=== PATIENT | male | born 1950 | race Caucasian/White ===

== ENCOUNTER → 2016-05-02 | Outpatient (CLI) | payer MEDICARE ==
[~2016-05-02] MED LIST: /MOXI40TA PO; AMLO10TA2 PO; AMPHETAMINE SALTS PO; ASPI81TA PO; CITA40TA PO; CLON0.2T PO; COUM7.5T PO; GLIM1TAB PO; HYDR100T13 PO; KLOR20TA PO; LASI40TA PO; LOSA100T36 PO; METO100T3 PO; SPIR25TA2 PO; TYLE325T5 PO; ZOCO80TA PO
[2016-05-02 14:35] LABS: ANION GAP 8 MEQ/L (8-16); BLOOD UREA NITROGEN 22 MG/DL (7-18); CALCIUM LEVEL 9.1 MG/DL (8.8-10.2); CARBON DIOXIDE LEVEL 29 MEQ/L (21-32); CHLORIDE LEVEL 106 MEQ/L (98-107); CREATININE FOR GFR 1.05 MG/DL (0.70-1.30); GLOMERULAR FILTRATION RATE > 60.0 (>49); GLUCOSE, FASTING 237 MG/DL (80-110); POTASSIUM SERUM 4.4 MEQ/L (3.5-5.1); SODIUM LEVEL 143 MEQ/L (136-145)
== END ==
LOC: M SMT 11:28
PROVIDERS: ATTEND Physician Assistant Medical
DX: E11.9 Type 2 diabetes mellitus without complications (principal)

== ENCOUNTER → 2016-05-18 | Day surgery (SDC) | payer MEDICARE ==
[~2016-05-18] VITALS: Ht 172.7 cm; Wt 108.9 kg
[~2016-05-18] MED LIST changes: +ACETAMINOPHEN 325 MG TAB PO PRN; +AMIO20TA PO; +ASPI81TA85 PO; +AcetaZOLAMIDE 500 MG ER CAP PO ONE; +BSS with VANC/TOB/EPI for EYE CASES IR ONE; +CYCLOPENTOLATE 2% OPHTH SOLN OD ONE; +FISH1000 PO; +FLUO40CA PO; +FURO40TA2 PO; +GLYB25TA PO; +HEALON DUET (HEALON 10MG/ML 0.55ML & HEALON ENDOCOAT 30MG/ML 0.85ML) As Ordered ONE; +HEALON DUET (HEALON 10MG/ML 0.55ML & HEALON ENDOCOAT 30MG/ML 0.85ML) XX ONE; +KETOROLAC 0.5% OPHTH SOLN XX ONE; +LIDOCAINE 1% SDV 5 ML VIAL As Ordered ONE; +LIDOCAINE 1% SDV 5 ML VIAL XX ONE; +LIDOCAINE 4% INJ 5 ML AMP OU ONE; +METF1000 PO; +METO-209 PO; +MIDAZOLAM INJ 2 MG/2 ML VIAL (J2250) As Ordered ONE; +MOXIFLOXACIN IN BSS 0.25MG/0.25ML INTRACAMERAL INJ (OR EYE ONLY)(J2280) As Ordered ONE; +MOXIFLOXACIN IN BSS 0.25MG/0.25ML INTRACAMERAL INJ (OR EYE ONLY)(J2280) ICAM ONE; +OFLOXACIN 0.3 % (OCUFLOX) OPTH SOL 5ML OD ONE; +PHENYLEPHRINE 2.5% OPHTH SOL 2ML OD ONE; +POTA20PW PO; +POTA20TA FT; +POVIDONE-IODINE 5% OPHTH PREP SOL 30ML As Ordered ONE; +PRAD150C PO; +PRAV80TA2 PO; +PROPARACAINE 0.5% OPHTH SOL 15ML XX PRN; +STRETAB4 PO; +TRIAMCINOLONE PRES FR 40 MG/ML 1ML(TRIESENCE)(OR EYE ONLY)(J3300 PER 1MG) As Ordered ONE; +TRIAMCINOLONE PRES FR 40 MG/ML 1ML(TRIESENCE)(OR EYE ONLY)(J3300 PER 1MG) IO ONE; +TRIMETHOBENZAMIDE 300 MG CAP PO PRN; +TROPICAMIDE 1% OPHTH SOLN 2 ML OD ONE; +VITA100041 PO; +fentaNYL 100 MCG/2 ML INJECTION (J3010) As Ordered ONE; +hydrALAZINE INJ 20 MG/ML VIAL As Ordered ONE
[2016-05-18 10:05] VITALS: BP 165/79
== END | disposition home or self-care (01) ==
LOC: M SDC 07:28
PROVIDERS: ATTEND Ophthalmology
DX: H26.9 Unspecified cataract (principal); I25.810 Atherosclerosis of coronary artery bypass graft(s) without angina pectoris; I48.0 Paroxysmal atrial fibrillation; E11.9 Type 2 diabetes mellitus without complications; I10 Essential (primary) hypertension; E78.5 Hyperlipidemia, unspecified; R41.840 Attention and concentration deficit; G47.33 Obstructive sleep apnea (adult) (pediatric); I71.4 Abdominal aortic aneurysm, without rupture; R06.9 Unspecified abnormalities of breathing; I50.9 Heart failure, unspecified; E78.00 Pure hypercholesterolemia, unspecified; M12.9 Arthropathy, unspecified; R06.02 Shortness of breath; F41.9 Anxiety disorder, unspecified; F32.9 Major depressive disorder, single episode, unspecified; Z95.5 Presence of coronary angioplasty implant and graft; Z87.891 Personal history of nicotine dependence; Z79.899 Other long term (current) drug therapy
CPT/HCPCS: 66984; J2250; J2280; J3010; J3300; V2632

== ENCOUNTER → 2016-06-06 | Day surgery (SDC) | payer MEDICARE ==
[~2016-06-06] VITALS: Ht 172.7 cm; Wt 109.0 kg
[~2016-06-06] MED LIST changes: -CYCLOPENTOLATE 2% OPHTH SOLN OD ONE; +CYCLOPENTOLATE 2% OPHTH SOLN XX ONE; +D5W/0.2% SODIUM CHLORIDE 250 ML IV SCH; +KETOROLAC 0.5% OPHTH SOLN OS ONE; -KETOROLAC 0.5% OPHTH SOLN XX ONE; +LIDOCAINE 0.75%/EPINEPHRINE 0.025% IN BSS 1ML SYR INTRACAMERAL (OR ONLY) ICAM ONE; -OFLOXACIN 0.3 % (OCUFLOX) OPTH SOL 5ML OD ONE; +OFLOXACIN 0.3 % (OCUFLOX) OPTH SOL 5ML XX ONE; -PHENYLEPHRINE 2.5% OPHTH SOL 2ML OD ONE; +PHENYLEPHRINE 2.5% OPHTH SOL 2ML XX ONE; +PROPARACAINE 0.5% OPHTH SOL 15ML OS PRN; -PROPARACAINE 0.5% OPHTH SOL 15ML XX PRN; -TROPICAMIDE 1% OPHTH SOLN 2 ML OD ONE; +TROPICAMIDE 1% OPHTH SOLN 2 ML XX ONE; -hydrALAZINE INJ 20 MG/ML VIAL As Ordered ONE
[2016-06-06 10:30] VITALS: BP 158/84
== END | disposition home or self-care (01) ==
LOC: M SDC 08:00
PROVIDERS: ATTEND Ophthalmology
DX: H26.9 Unspecified cataract (principal); I48.0 Paroxysmal atrial fibrillation; I25.810 Atherosclerosis of coronary artery bypass graft(s) without angina pectoris; I50.9 Heart failure, unspecified; E11.8 Type 2 diabetes mellitus with unspecified complications; E78.5 Hyperlipidemia, unspecified; I10 Essential (primary) hypertension; I71.4 Abdominal aortic aneurysm, without rupture; R07.9 Chest pain, unspecified; R06.83 Snoring; R06.02 Shortness of breath; F32.9 Major depressive disorder, single episode, unspecified; G47.33 Obstructive sleep apnea (adult) (pediatric); R41.840 Attention and concentration deficit; Z79.899 Other long term (current) drug therapy; Z79.82 Long term (current) use of aspirin; Z87.891 Personal history of nicotine dependence; Z95.5 Presence of coronary angioplasty implant and graft
CPT/HCPCS: 66984; J2250; J2280; J3010; J3300; V2632

== ENCOUNTER → 2016-08-15 | Outpatient (CLI) | payer MEDICARE ==
[~2016-08-15] MED LIST changes: -ACETAMINOPHEN 325 MG TAB PO PRN; -AcetaZOLAMIDE 500 MG ER CAP PO ONE; -BSS with VANC/TOB/EPI for EYE CASES IR ONE; -CYCLOPENTOLATE 2% OPHTH SOLN XX ONE; -D5W/0.2% SODIUM CHLORIDE 250 ML IV SCH; -HEALON DUET (HEALON 10MG/ML 0.55ML & HEALON ENDOCOAT 30MG/ML 0.85ML) As Ordered ONE; -HEALON DUET (HEALON 10MG/ML 0.55ML & HEALON ENDOCOAT 30MG/ML 0.85ML) XX ONE; -KETOROLAC 0.5% OPHTH SOLN OS ONE; +KLOR20PO12 PO; -LIDOCAINE 0.75%/EPINEPHRINE 0.025% IN BSS 1ML SYR INTRACAMERAL (OR ONLY) ICAM ONE; -LIDOCAINE 1% SDV 5 ML VIAL As Ordered ONE; -LIDOCAINE 1% SDV 5 ML VIAL XX ONE; -LIDOCAINE 4% INJ 5 ML AMP OU ONE; -MIDAZOLAM INJ 2 MG/2 ML VIAL (J2250) As Ordered ONE; -MOXIFLOXACIN IN BSS 0.25MG/0.25ML INTRACAMERAL INJ (OR EYE ONLY)(J2280) As Ordered ONE; -MOXIFLOXACIN IN BSS 0.25MG/0.25ML INTRACAMERAL INJ (OR EYE ONLY)(J2280) ICAM ONE; -OFLOXACIN 0.3 % (OCUFLOX) OPTH SOL 5ML XX ONE; -PHENYLEPHRINE 2.5% OPHTH SOL 2ML XX ONE; -POTA20PW PO; -POVIDONE-IODINE 5% OPHTH PREP SOL 30ML As Ordered ONE; -PROPARACAINE 0.5% OPHTH SOL 15ML OS PRN; -TRIAMCINOLONE PRES FR 40 MG/ML 1ML(TRIESENCE)(OR EYE ONLY)(J3300 PER 1MG) As Ordered ONE; -TRIAMCINOLONE PRES FR 40 MG/ML 1ML(TRIESENCE)(OR EYE ONLY)(J3300 PER 1MG) IO ONE; -TRIMETHOBENZAMIDE 300 MG CAP PO PRN; -TROPICAMIDE 1% OPHTH SOLN 2 ML XX ONE; -fentaNYL 100 MCG/2 ML INJECTION (J3010) As Ordered ONE
[2016-08-15 13:44] LABS: BASO % 0.6 % (0.0-1.0); EOS # 0.7 K/mm3 (0.0-0.50); EOS % 7.7 % (0.0-3.0); LARGE UNSTAINED CELL # 0.2 K/mm3 (0.0-0.4); LARGE UNSTAINED CELL % 2.6 % (0.0-4.0); LYMPH % 20.7 % (24.0-44.0); MEAN CORPUSCULAR HGB CONC 33.7 g/dl (32.0-36.5); MEAN CORPUSCULAR VOLUME 92.1 fl (80.0-96.0); MONO # 0.6 K/mm3 (0.0-0.8); MONO % 6.3 % (0.0-5.0); NEUTROPHILS # 5.4 K/mm3 (1.8-7.7); PLATELET COUNT, AUTOMATED 201 k/mm3 (150-450); RED CELL DISTRIBUTION WIDTH 13.1 % (11.5-14.5); WHITE BLOOD COUNT 8.6 K/mm3 (4.0-10.0)
[2016-08-15 13:47] LABS: ALBUMIN 3.7 GM/DL (3.2-5.2); ALBUMIN/GLOBULIN RATIO 1.12 (1.00-1.93); ALKALINE PHOSPHATASE 102 U/L (45-117); ALT/SGPT 73 U/L (12-78); ANION GAP 5 MEQ/L (8-16); AST/SGOT 48 U/L (15-37); BILIRUBIN,TOTAL 0.5 MG/DL (0.2-1.0); BLOOD UREA NITROGEN 21 MG/DL (7-18); CALCIUM LEVEL 8.7 MG/DL (8.8-10.2); CARBON DIOXIDE LEVEL 29 MEQ/L (21-32); CHLORIDE LEVEL 107 MEQ/L (98-107); CHOLESTEROL LEVEL 161 MG/DL (<200); CREATININE FOR GFR 1.02 MG/DL (0.70-1.30); GLOMERULAR FILTRATION RATE > 60.0 (>49); GLUCOSE, FASTING 219 MG/DL (80-110); POTASSIUM SERUM 4.3 MEQ/L (3.5-5.1); SODIUM LEVEL 141 MEQ/L (136-145); TRIGLYCERIDES LEVEL 134 MG/DL (<150)
== END ==
LOC: M SMT 09:41
PROVIDERS: ATTEND Physician Assistant Medical
DX: E11.9 Type 2 diabetes mellitus without complications (principal); Z79.01 Long term (current) use of anticoagulants; I48.0 Paroxysmal atrial fibrillation; E78.5 Hyperlipidemia, unspecified; I10 Essential (primary) hypertension; I25.810 Atherosclerosis of coronary artery bypass graft(s) without angina pectoris

== ENCOUNTER → 2017-04-13 | Outpatient (CLI) | payer MEDICARE | LOC: M SMT 13:32 | DX: M26.601 Right temporomandibular joint disorder, unspecified (principal); R51 Headache | CPT/HCPCS: 70150 ==

== ENCOUNTER → 2017-11-21 | Outpatient (CLI) | payer MEDICARE ==
[2017-11-21 17:26] LABS: HEMATOCRIT 44.9 % (42.0-52.0); HEMOGLOBIN 15.5 g/dl (13.5-17.5); MEAN CORPUSCULAR HEMOGLOBIN 30.7 pg (27.0-33.0); MEAN CORPUSCULAR HGB CONC 34.5 g/dl (32.0-36.5); MEAN CORPUSCULAR VOLUME 88.9 fl (80.0-96.0); PLATELET COUNT, AUTOMATED 202 10^3/uL (150-450); RED BLOOD COUNT 5.05 10^6/uL (4.30-6.10); RED CELL DISTRIBUTION WIDTH 12.4 % (11.5-14.5); WHITE BLOOD COUNT 8.3 10^3/uL (4.0-10.0)
[2017-11-21 17:51] LABS: ESTIMATED AVERAGE GLUCOSE 214 MG/DL (60-110); HEMOGLOBIN A1c 9.1 %
[2017-11-21 18:08] LABS: ALBUMIN 3.7 GM/DL (3.2-5.2); ALBUMIN/GLOBULIN RATIO 0.97 (1.00-1.93); ALKALINE PHOSPHATASE 142 U/L (45-117); ALT/SGPT 43 U/L (12-78); ANION GAP 11 MEQ/L (8-16); AST/SGOT 23 U/L (7-37); BILIRUBIN,TOTAL 0.7 MG/DL (0.2-1.0); BLOOD UREA NITROGEN 12 MG/DL (7-18); CALCIUM LEVEL 9.2 MG/DL (8.8-10.2); CARBON DIOXIDE LEVEL 28 MEQ/L (21-32); CHLORIDE LEVEL 103 MEQ/L (98-107); CREATININE FOR GFR 1.15 MG/DL (0.70-1.30); GLOMERULAR FILTRATION RATE > 60.0 (>49); GLUCOSE, FASTING 351 MG/DL (70-100); POTASSIUM SERUM 3.5 MEQ/L (3.5-5.1); SODIUM LEVEL 142 MEQ/L (136-145); TOTAL PROTEIN 7.5 GM/DL (6.4-8.2); TROPONIN I < 0.02 NG/ML (< 0.10)
== END ==
LOC: M SMT 13:59
DX: I25.10 Atherosclerotic heart disease of native coronary artery without angina pectoris (principal); E11.9 Type 2 diabetes mellitus without complications; I10 Essential (primary) hypertension; I48.91 Unspecified atrial fibrillation
CPT/HCPCS: 84443

== ENCOUNTER → 2017-11-21 | Outpatient (CLI) | payer MEDICARE | LOC: M SMT 13:57 | DX: E78.5 Hyperlipidemia, unspecified (principal); E11.65 Type 2 diabetes mellitus with hyperglycemia | CPT/HCPCS: 36415 ==

== ENCOUNTER 2018-06-21 10:21 | Inpatient (IN) | payer MEDICARE ==
[~2018-06-21] VITALS: Ht 170.2 cm; Wt 85.3 kg
[~2018-06-21 10:21] MED LIST changes: +AMIO200T PO; -AMIO20TA PO; +AMLO10TA5 PO; +KLOR20TA42 FT; +LOSA100T50 PO; -METF1000 PO; +METF10004 PO; -METO-209 PO; +METO1TAB33 PO; -POTA20TA FT; +VITA-182 PO; -VITA100041 PO
[2018-06-21 11:01] LABS: BASO % 0.4 % (0.0-1.0); EOS # 0.1 10^3/uL (0.0-0.50); EOS % 1.9 % (0.0-3.0); HEMATOCRIT 43.8 % (42.0-52.0); HEMOGLOBIN 14.7 g/dl (13.5-17.5); LYMPH % 14.1 % (24.0-44.0); MEAN CORPUSCULAR HEMOGLOBIN 29.7 pg (27.0-33.0); MEAN CORPUSCULAR HGB CONC 33.6 g/dl (32.0-36.5); MEAN CORPUSCULAR VOLUME 88.5 fl (80.0-96.0); MONO # 0.8 10^3/uL (0.0-0.8); MONO % 10.6 % (0.0-5.0); NEUTROPHILS # 5.3 10^3/uL (1.8-7.7); NEUTROPHILS % 72.7 % (36.0-66.0); PLATELET COUNT, AUTOMATED 173 10^3/uL (150-450); RED BLOOD COUNT 4.95 10^6/uL (4.30-6.10); WHITE BLOOD COUNT 7.3 10^3/uL (4.0-10.0)
[2018-06-21 11:02] LABS: VENOUS BASE EXCESS -1.2 (-2.0-2.0); VENOUS O2 SATURATION 91.1 % (60.0-80.0); VENOUS PARTIAL PRESSURE O2 57.4 mmHg (30.0-50.0); VENOUS PH 7.442 UNITS (7.330-7.430); VENOUS STANDARD HCO3 23.3 MEQ/L
--- NOTE | 2018-06-21 11:02 | REP ---
Chest one-view HISTORY: Cough Comparison: 01/18/2013 Parenchymal densities are present in the lower lobes consistent with bibasilar atelectasis or infiltrates . The cardiac silhouette is enlarged. The pulmonary vasculature is normal in appearance. Impression: 1. Bibasilar atelectasis or infiltrates. 2. Cardiomegaly. Electronically Signed by Alex Peña MD 06/21/2018 10:53 A
[2018-06-21 11:25] LABS: INR 2.09; PROTHROMBIN TIME 23.9 SECONDS (12.1-14.4)
[2018-06-21 11:38] LABS: ALBUMIN 3.1 GM/DL (3.2-5.2); ALT/SGPT 43 U/L (12-78); BILIRUBIN,DIRECT 0.3 MG/DL (0.0-0.2); BILIRUBIN,TOTAL 0.8 MG/DL (0.2-1.0); BLOOD UREA NITROGEN 14 MG/DL (7-18); CALCIUM LEVEL 8.1 MG/DL (8.8-10.2); CARBON DIOXIDE LEVEL 24 MEQ/L (21-32); CHLORIDE LEVEL 103 MEQ/L (98-107); CK-MB VALUE MASS < 1.0 NG/ML (<3.6); CPK CREATINE PHOSPHOKINASE 73 U/L (39-308); CREATININE FOR GFR 1.04 MG/DL (0.70-1.30); GLOMERULAR FILTRATION RATE > 60.0 (>49); GLUCOSE, FASTING 254 MG/DL (70-100); MB/CK RELATIVE INDEX 1.37 (< OR =4); NT-PRO BNP 1156 PG/ML (<125); POTASSIUM SERUM 3.1 MEQ/L (3.5-5.1); SODIUM LEVEL 135 MEQ/L (136-145); TROPONIN I 0.04 NG/ML (< 0.10)
[2018-06-21] MEDS ORDERED: POTASSIUM CHLORIDE 10 MEQ SR TABLET PO ONE (12:00)
--- NOTE | 2018-06-21 13:44 | REP ---
CT CHEST WITHOUT CONTRAST: 06/21/2018. COMPARISON: AP portable chest 06/21/2018, CT angio 01/16/2013. CLINICAL HISTORY: Dyspnea and cough. FINDINGS: Noncontrast scanning through the chest performed. There are bilateral effusions which are small but left is greater than right. They extend to the upper one-third of the chest. Left atrial enlargement noted. Some left ventricular prominence seen. There is vascular congestion and hazy ground-glass opacities with the shaggy patchy edema or infiltrates in both lungs. Some septal thickening is noted bilaterally. There are some ground-glass opacities in the upper lung zones as well, right more than left. No parenchymal mass. There is a parenchymal nodule 9 mm in the right upper lobe, unchanged and benign giving stability for over 5 years. Sternotomy wires, mediastinal clips from CABG and small hiatal hernia noted. Mediastinal adenopathy is unchanged. Largest node 13.3 cm in the right paratracheal region was 12 mm on the previous study. 12 mm precarinal node evident and subcarinal adenopathy, all stable. There is no axillary, supraclavicular mass. Fat replaced axillary nodes present. Some hilar nodes are suggested. The bone windows show thoracic kyphosis and marginal osteophytes but no acute compression deformity. The sternotomy is healed. The wires appear grossly intact. Medial clavicles, scapulae, portions of humeral heads, ribs are all intact. The spine is without compression deformity. IMPRESSION: In the upper abdomen visualized portions of liver and spleen are unremarkable. There are a few calcified gallstones in the dependent gallbladder. The adrenal glands and upper poles kidneys intact. That portion of pancreas included is unremarkable. Small hiatal hernia and a small amount of reflux evident. IMPRESSION: 1. Bilateral pleural effusions with cardiomegaly, hazy ground-glass opacities mid and lower lung zones with shaggy densities and prominence of the septa in lower lung zones suggestive of pulmonary edema. Basilar infiltrates could also be concurrent patchy pneumonitis but this should be clinical differentiation. Left effusion, slightly larger than the right. 2. Sternotomy wires and clips from CABG. 3. Hiatal hernia, cholelithiasis. Chronic degenerative changes in the spine with kyphosis. No other significant or acute finding. Electronically Signed by John Gonzalez MD 06/21/2018 07:48 P
[2018-06-21] MEDS ORDERED: FUROSEMIDE 40 MG/4 ML VIAL (J1940) IV ONE (13:45)
[2018-06-21] MEDS ORDERED: OSELTAMIVIR PHOSPHATE 75 MG CAP (TAMIFLU) PO ONE (13:45)
[2018-06-21] MEDS ORDERED: METOPROLOL 5 MG/5 ML VIAL IV SCH (14:25)
[2018-06-21] MEDS ORDERED: ADDE10TA PO (14:33)
[2018-06-21] MEDS ORDERED: VITMTA PO (14:33)
[2018-06-21] MEDS ORDERED: FISH1200 PO (14:33)
[2018-06-21] MEDS ORDERED: METOPROLOL 5 MG/5 ML VIAL IV STA (17:53)
--- NOTE | 2018-06-21 18:48 | HPE ---
DATE OF ADMISSION: 06/21/2018 A 68-year-old male with past medical history of coronary artery disease, status post coronary artery bypass graft (CABG), status post stent placement times three, history of hypertension, diabetes, morbid obesity, obstructive sleep apnea, on continuous positive airway pressure (CPAP), presents to the emergency room from his primary medical doctor's office for severe shortness of breath and elevated temperatures. He was flu A positive at the doctor's office. When he came to the emergency room (ER),he was also found to be on chest x-ray in pulmonary edema and congestive heart failure (CHF). He was given 40 of intravenous (IV) Lasix and nebulizer, and 125 of Solu-Medrol was given. Patient also was given 5 of Lopressor for atrial fibrillation/rapid ventricular response (RVR), which is a chronic atrial fibrillation. Patient's atrial fibrillation is still in rapid response. It is between 114-150. He is still mildly short of breath. He is saturating 93% on 2 liters nasal cannula. He does have subjective feeling of fever, aches, and chills, and the onset of his symptoms was approximately 3 days ago. He will be admitted for further management. PAST MEDICAL HISTORY: 1. Diabetes. 2. Hypertension. 3. Morbid obesity. 4. Attention deficit hyperactivity disorder (ADHD). 5. Gastroesophageal reflux disease (GERD). 6. Depression. 7. History of morbid obesity with obstructive sleep apnea, on CPAP. 8. History of coronary artery disease status post CABG, status post stent placement times three. 9. Chronic diastolic heart failure. ALLERGIES: No known drug allergies. FAMILY HISTORY: Noncontributory. SOCIAL HISTORY: Patient has a remote history of smoking. Quit approximately 50 years ago. Denies alcohol or illicit drugs. HOME MEDICATIONS: - amiodarone 200 mg orally daily - amlodipine 10 mg orally every 3 daily - Adderall 10 mg orally daily - aspirin 81 mg orally daily - colecalciferol 1000 units orally daily - fish oil 1200 mg orally daily - fluoxetine 40 mg orally daily - Lasix 40 mg orally daily - glyburide 5 mg orally daily - losartan 100 mg orally daily - metformin 1000 mg orally twice daily - metoprolol 100 mg orally daily - multivitamin one tablet orally daily - pravastatin 80 mg orally daily REVIEW OF SYSTEMS: Negative for [id number] systems except what is mentioned in the history of present illness (HPI). VITAL SIGNS: Blood pressure 177/99, heart rate 132, irregular, respiratory rate is 28, temperature 99.1, oxygen saturation is 92% on 2 liters nasal cannula. HEAD: Atraumatic, normocephalic. NECK: Supple. No jugular venous distention (JVD). LUNGS: Bilateral rhonchi. S1, S2 audible. No murmurs appreciated. ABDOMEN: Soft. Positive bowel sounds. There is no pedal edema. SKIN: Intact. NEUROLOGIC: Patient awake, alert, oriented times three. LABORATORY DATA: Sodium 135, potassium 3.1, chloride 103, CO2 of 24, BUN is 14, creatinine 1.04, glucose is 254. Lactic acid is 2.2. Troponin is 0.04. TSH is 1.19. WBC 10.3, hemoglobin 14.7, hematocrit 43.8, platelets are 173,000. Blood gases: A pH 7.442. Coagulations: INR is 2.09. IMPRESSION: 1. Atrial fibrillation with rapid ventricular response (RVR). 2. Acute diastolic heart failure. 3. Flu A positive. 4. Hypokalemia. PLAN: Patient is to be admitted to progressive care unit (PCU). I am going to give him another dose of Lopressor 5 mg IV push and will give him his evening medications and see if his rate is better controlled. I do not want to interfere with any of his atrioventricular (AV) shira blockers, because I feel that this RVR at this time is secondary to catecholamine response to stress response from his shortness of breath and influenza symptoms. We will replete his potassium, repeat labs in the morning, and start him on Tamiflu 75 mg orally twice daily. Will continue his other preadmission medications except for Lasix. I am going to give him 40 IV daily for now and will continue his care in the PCU.
--- NOTE | 2018-06-21 19:20 | ECGEPIP ---
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
[2018-06-21] MEDS ORDERED: ACETAMINOPHEN TAB 650MG DOSE (2X325MG) PO ONE (21:15)
[2018-06-21] MEDS ORDERED: FUROSEMIDE 100 MG/10 ML VIAL (J1940) IV ONE (21:15)
[2018-06-21] MEDS: OSELTAMIVIR PHOSPHATE 75 MG CAP (TAMIFLU) PO SCH (21:26)
[2018-06-21 22:00] VITALS: BP 162/78
[2018-06-22] VITALS (8 sets, daily range): BP systolic 120–152; BP diastolic 60–82; O2SAT 90–91
[2018-06-22 05:29] LABS: BASO % 0.3 % (0.0-1.0); HEMATOCRIT 43.5 % (42.0-52.0); HEMOGLOBIN 14.4 g/dl (13.5-17.5); LYMPH # 1.4 10^3/uL (1.5-4.5); LYMPH % 15.1 % (24.0-44.0); MEAN CORPUSCULAR HEMOGLOBIN 29.1 pg (27.0-33.0); MEAN CORPUSCULAR HGB CONC 33.1 g/dl (32.0-36.5); MEAN CORPUSCULAR VOLUME 87.9 fl (80.0-96.0); MONO # 1.2 10^3/uL (0.0-0.8); MONO % 12.9 % (0.0-5.0); NEUTROPHILS # 6.6 10^3/uL (1.8-7.7); NEUTROPHILS % 71.3 % (36.0-66.0); PLATELET COUNT, AUTOMATED 179 10^3/uL (150-450); RED BLOOD COUNT 4.95 10^6/uL (4.30-6.10); WHITE BLOOD COUNT 9.3 10^3/uL (4.0-10.0)
[2018-06-22] MEDS: IPRATROPIUM 0.5MG/ALBUTEROL 2.5MG INH SOL UD 3ML (DUONEB)(J7620) NEB SCH ×4 (05:50→12:13)
[2018-06-22 05:55] LABS: BLOOD UREA NITROGEN 16 MG/DL (7-18); CALCIUM LEVEL 8.1 MG/DL (8.8-10.2); CARBON DIOXIDE LEVEL 28 MEQ/L (21-32); CHLORIDE LEVEL 100 MEQ/L (98-107); CREATININE FOR GFR 1.17 MG/DL (0.70-1.30); GLOMERULAR FILTRATION RATE > 60.0 (>49); GLUCOSE, FASTING 295 MG/DL (70-100); SODIUM LEVEL 137 MEQ/L (136-145)
[2018-06-22] MEDS ORDERED: POTASSIUM CHLORIDE 10 MEQ SR TABLET PO ONE ×2 (06:15→07:15)
[2018-06-22] MEDS ORDERED: DEXTROSE 50% 50 ML SYRINGE IV PRN (07:30)
[2018-06-22] MEDS ORDERED: GLUCAGON FOR INJ 1 MG VIAL (J1610) SC PRN (07:30)
[2018-06-22] MEDS ORDERED: GLUCOSE 4 GM CHEW TABLET PO PRN (07:30)
[2018-06-22] MEDS ORDERED: metFORMIN (GLUCOPHAGE) 1000 MG TABLET PO SCH (08:00)
[2018-06-22] MEDS: OSELTAMIVIR PHOSPHATE 75 MG CAP (TAMIFLU) PO SCH ×2 (09:00→21:00)
[2018-06-22] MEDS ORDERED: FUROSEMIDE 40 MG/4 ML VIAL (J1940) IV SCH (09:00)
[2018-06-22] MEDS ORDERED: LEVEMIR (INSULIN DETEMIR) 1 UNITS/0.01ML SC SCH (09:00)
[2018-06-22] MEDS: ENOXAPARIN 40 MG/0.4 ML SYRINGE (J1650) SC SCH (09:38)
[2018-06-22] MEDS: HumaLOG INSULIN (NovoLOG) PER UNIT SC SCH ×4 (09:38→21:33)
[2018-06-22 09:45] LABS: HEMOGLOBIN A1c 8.8 %
[2018-06-22] MEDS: VITAMIN D 1,000 INTERNATIONAL UNITS TABLET PO SCH (09:46)
[2018-06-22] MEDS: FLUoxetine 20 MG CAP PO SCH (09:46)
[2018-06-22] MEDS: ADDERALL 5 MG TAB PO SCH (09:46)
[2018-06-22] MEDS: PRAVASTATIN 20 MG TAB PO SCH (09:46)
[2018-06-22] MEDS: LOSARTAN 50 MG TAB PO SCH (09:47)
[2018-06-22] MEDS: AMIODARONE 200 MG TAB (PACERONE) PO SCH (09:47)
[2018-06-22] MEDS: glyBURIDE 2.5 MG TAB PO SCH (09:47)
[2018-06-22] MEDS: amLODIPine 10 MG TAB PO SCH (09:48)
[2018-06-22] MEDS: METOPROLOL SUCC (TopROL XL) 100MG *XL* TAB PO SCH (09:48)
[2018-06-22] MEDS: MULTIVITAMINS/MINERALS THERAP 1 TAB PO SCH (09:48)
[2018-06-22] MEDS: ASPIRIN 81 MG ENTERIC TAB PO SCH (09:48)
--- NOTE | 2018-06-22 13:45 | IPNPDOC ---
Text Note Date of Service The patient was seen on 06/22/18. NOTE Subjective: Feels better this am. Says has some increased enrgy aas well as c ouls eat some breakfast. Last 3 to 4 days he has been unable to get out of bed he was so tired, and has not had anything to eat. So he feels better overall. Coninues to have SOB VITAL SIGNS: As below HEAD: Atraumatic, normocephalic. NECK: Supple. No jugular venous distention (JVD). LUNGS: Bilateral rhonchi with coarse breath sounds. Heart; S1, S2 audible. irregular , No murmurs appreciated. ABDOMEN: Soft. Positive bowel sounds. Extremities: There is no pedal edema. SKIN: Intact. NEUROLOGIC: Patient awake, alert, oriented times three. Labs and radiology: Reviewed Assessment and plan: A 68-year-old male with past medical history of coronary artery disease, status post coronary artery bypass graft (CABG), status post stent placement times three, history of hypertension, diabetes, morbid obesity, obstructive sleep apnea, on continuous positive airway pressure (CPAP), presents to the emergency room from his primary medical doctor's office for severe shortness of breath and elevated temperatures. He was flu A positive at the doctor's office. When he came to the emergency room (ER),he was also found to be on chest x-ray in pulmonary edema and congestive heart failure (CHF). He was given 40 of intravenous (IV) Lasix and nebulizer, and 125 of Solu-Medrol was given. Patient also was given 5 of Lopressor for atrial fibrillation/rapid ventricular response (RVR), which is a chronic atrial fibrillation. Patient's atrial fibrillation is still in rapid response. It is between 114-150. He is still mildly short of breath. He is saturating 93% on 2 liters nasal cannula. He does have subjective feeling of fever, aches, and chills, and the onset of his symptoms was approximately 3 days ago. He will be admitted for further management. Influenza A continue Tamiflu, tylenol prn. Albuterol Post infectious bronchospasm will give albuterol and budesonide nebs CHF exacerbation known to have diastolic CHF with moderate mitral regurgitation will get new echo continue IV lasix Afib with RVR probably due to the FLU continue amiodarone and metoprolol Diabetes. sugars uncontrolled will continue glipizide and add levemir and lispro will hold metformin while in hospital. A1c ordered last one was > 10 Hypertension. losartan and metoprolol History of Morbid obesity with MARCIN On CPAP now has lost some weight. Attention deficit hyperactivity disorder (ADHD). continue home med Gastroesophageal reflux disease (GERD). Depression. hyperlipidemia continue statin Coronary artery disease status post CABG, status post stent placement times three. Continue ASA, statin, betablocker DVT prophylaxis has been ordered. VS,Fishbone, I+O VS, Fishbone, I+O Laboratory Tests 06/21/18 10:51 Red Blood Count 4.95, Mean Corpuscular Volume 88.5, Mean Corpuscular Hemoglobin 29.7, Mean Corpuscular Hemoglobin Concent 33.6, Red Cell Distribution Width 13.2, Neutrophils (%) (Auto) 72.7 H, Lymphocytes (%) (Auto) 14.1 L, Monocytes (%) (Auto) 10.6 H, Eosinophils (%) (Auto) 1.9, Basophils (%) (Auto) 0.4, Neutrophils # (Auto) 5.3, Lymphocytes # (Auto) 1.0 L, Monocytes # (Auto) 0.8, Eosinophils # (Auto) 0.1, Basophils # (Auto) 0.0 06/22/18 04:39 Red Blood Count 4.95, Mean Corpuscular Volume 87.9, Mean Corpuscular Hemoglobin 29.1, Mean Corpuscular Hemoglobin Concent 33.1, Red Cell Distribution Width 13.2 , Neutrophils (%) (Auto) 71.3 H, Lymphocytes (%) (Auto) 15.1 L, Monocytes (%) (Auto) 12.9 H, Eosinophils (%) (Auto) 0.0, Basophils (%) (Auto) 0.3, Neutrophils # (Auto) 6.6, Lymphocytes # (Auto) 1.4 L, Monocytes # (Auto) 1.2 H, Eosinophils # (Auto) 0.0, Basophils # (Auto) 0.0, Calcium Level 8.1 L Vital Signs Date Time Temp Pulse Resp B/P (MAP) Pulse Ox O2 Delivery O2 Flow Rate FiO2 06/22/18 04:00 98.2 101 26 152/80 (104) 92 4.0 06/22/18 00:01 Nasal Cannula I&O- Last 24 Hours up to 6 AM 06/22/18 06:00 Intake Total 600 ml Output Total 2700 ml Balance -2100 ml YASMANY VAZQUEZ MD Jun 22, 2018 07:41
[2018-06-22] MEDS: ALBUTEROL SULFATE 2.5 MG/0.5 ML INH NEB SOLN NEB SCH ×2 (14:00→20:19)
[2018-06-22] MEDS ORDERED: IPRATROPIUM 0.5MG/ALBUTEROL 2.5MG INH SOL UD 3ML (DUONEB)(J7620) NEB PRN (17:00)
[2018-06-22] MEDS ORDERED: FUROSEMIDE 40 MG/4 ML VIAL (J1940) IV ONE (17:00)
--- NOTE | 2018-06-22 18:48 | ECHO ---
DATE OF PROCEDURE: 06/22/2018 DATE OF : 1950 AGE: 68 REFERRING PROVIDER: Dr. Jess Sanchez PATIENT LOCATION: Room 3215 REASON FOR THE ECHOCARDIOGRAM: Congestive heart failure. 2D MEASUREMENTS: IVS: 1.6 cm LV: 5.4 cm LVPW: 1.3 cm LA: 4.7 cm Aorta: 3.3 cm IVC: 2.7 cm DOPPLER MEASUREMENTS: Peak velocity across the aortic valve: 1.5 m/s Peak velocity across the LVOT: 1.1 m/s Mitral E: 1.0 Maximum tricuspid valve velocity: 2.7 m/s 2D COMMENTS: 1. Mildly to moderately increased left ventricular wall thickness with normal left ventricular size and normal global left ventricular systolic function. The estimated left ventricular systolic ejection fraction is 60-65%. 2. Mildly enlarged left atrium. Normal right atrium and right ventricle. 3. The atrial septum appeared to be normal without evidence of defect or shunt. 4. Normal aortic root. 5. No pericardial effusion seen. 6. Minimally calcified aortic valve with normal leaflet excursion. Normal mitral valve, tricuspid valve, and pulmonic valve. The proximal pulmonary artery branches were not well visualized. 7. The inferior vena cava was mildly enlarged, central venous pressure might be elevated. DOPPLER: It detects trace aortic regurgitation, mild to moderate mitral regurgitation, mild tricuspid regurgitation. The calculated pulmonary artery systolic pressure varied between 30 to 40 mmHg. Assessment of the left ventricular systolic function was limited, patient appears to be in atrial fibrillation during the test. IMPRESSION: 1. Normal global left ventricular systolic function with mild to moderate concentric left ventricular hypertrophy. 2. Aortic valve sclerosis with trace aortic regurgitation but no aortic stenosis. 3. Mitral annulus calcification with mildly enlarged left atrium and mild to moderate mitral regurgitation. 4. Mild tricuspid regurgitation with a normal calculated pulmonary artery systolic pressure. 5. The inferior vena cava was enlarged, central venous pressure might be elevated.
[2018-06-22] MEDS: BUDESONIDE 0.5 MG/2 ML INHALATION SUSPENSION INH SCH (20:19)
[2018-06-22] MEDS ORDERED: ACETAMINOPHEN 500 MG TAB PO PRN (20:45)
[2018-06-22] MEDS ORDERED: FUROSEMIDE 100 MG/10 ML VIAL (J1940) IV ONE (21:00)
[2018-06-22] MEDS ORDERED: SLF 3 ML SYR IV PRN (21:15)
[2018-06-22] MEDS: SLF 3 ML SYR IV SCH (21:34)
[2018-06-23] VITALS (8 sets, daily range): BP systolic 112–162; BP diastolic 68–101; O2SAT 94
[2018-06-23] MEDS: ALBUTEROL SULFATE 2.5 MG/0.5 ML INH NEB SOLN NEB SCH ×4 (00:35→20:03)
[2018-06-23 05:25] LABS: BASO % 0.2 % (0.0-1.0); HEMATOCRIT 40.9 % (42.0-52.0); HEMOGLOBIN 13.7 g/dl (13.5-17.5); LYMPH # 1.6 10^3/uL (1.5-4.5); LYMPH % 12.2 % (24.0-44.0); MEAN CORPUSCULAR HEMOGLOBIN 29.3 pg (27.0-33.0); MEAN CORPUSCULAR HGB CONC 33.5 g/dl (32.0-36.5); MEAN CORPUSCULAR VOLUME 87.6 fl (80.0-96.0); MONO # 1.2 10^3/uL (0.0-0.8); MONO % 9.4 % (0.0-5.0); NEUTROPHILS # 9.9 10^3/uL (1.8-7.7); NEUTROPHILS % 77.6 % (36.0-66.0); PLATELET COUNT, AUTOMATED 192 10^3/uL (150-450); RED BLOOD COUNT 4.67 10^6/uL (4.30-6.10); WHITE BLOOD COUNT 12.7 10^3/uL (4.0-10.0)
[2018-06-23 05:52] LABS: BLOOD UREA NITROGEN 21 MG/DL (7-18); CARBON DIOXIDE LEVEL 27 MEQ/L (21-32); CHLORIDE LEVEL 98 MEQ/L (98-107); CREATININE FOR GFR 1.26 MG/DL (0.70-1.30); GLOMERULAR FILTRATION RATE > 60.0 (>49); GLUCOSE, FASTING 293 MG/DL (70-100); POTASSIUM SERUM 3.1 MEQ/L (3.5-5.1); SODIUM LEVEL 133 MEQ/L (136-145)
[2018-06-23] MEDS: SLF 3 ML SYR IV SCH ×3 (06:00→21:16)
[2018-06-23] MEDS ORDERED: POTASSIUM CHLORIDE 10 MEQ SR TABLET PO ONE (08:00)
[2018-06-23] MEDS: BUDESONIDE 0.5 MG/2 ML INHALATION SUSPENSION INH SCH ×2 (08:04→20:03)
[2018-06-23] MEDS: LEVEMIR (INSULIN DETEMIR) 1 UNITS/0.01ML SC SCH (08:32)
[2018-06-23] MEDS: HumaLOG INSULIN (NovoLOG) PER UNIT SC SCH ×4 (08:32→21:16)
[2018-06-23] MEDS: ENOXAPARIN 40 MG/0.4 ML SYRINGE (J1650) SC SCH (08:33)
[2018-06-23] MEDS: FUROSEMIDE 40 MG/4 ML VIAL (J1940) IV SCH ×2 (08:34→16:36)
[2018-06-23] MEDS: MULTIVITAMINS/MINERALS THERAP 1 TAB PO SCH (08:34)
[2018-06-23] MEDS: ADDERALL 5 MG TAB PO SCH (08:35)
[2018-06-23] MEDS: METOPROLOL SUCC (TopROL XL) 100MG *XL* TAB PO SCH (08:35)
[2018-06-23] MEDS: amLODIPine 10 MG TAB PO SCH (08:35)
[2018-06-23] MEDS: ASPIRIN 81 MG ENTERIC TAB PO SCH (08:36)
[2018-06-23] MEDS: PRAVASTATIN 20 MG TAB PO SCH (08:36)
[2018-06-23] MEDS: FLUoxetine 20 MG CAP PO SCH (08:36)
[2018-06-23] MEDS: OSELTAMIVIR PHOSPHATE 75 MG CAP (TAMIFLU) PO SCH ×2 (08:37→21:16)
[2018-06-23] MEDS: VITAMIN D 1,000 INTERNATIONAL UNITS TABLET PO SCH (08:37)
[2018-06-23] MEDS: AMIODARONE 200 MG TAB (PACERONE) PO SCH (08:37)
[2018-06-23] MEDS: glyBURIDE 2.5 MG TAB PO SCH (08:37)
[2018-06-23] MEDS: LOSARTAN 50 MG TAB PO SCH (08:37)
[2018-06-23] MEDS: POTASSIUM CHLORIDE 10 MEQ SR TABLET PO SCH ×2 (10:11→21:16)
--- NOTE | 2018-06-23 17:00 | IPNPDOC ---
Text Note Date of Service The patient was seen on 06/23/18. NOTE Subjective: Still feels very tired and no energy. Says he is feeling very sle epy. having dark orange colored urine. On 6 liters high flow oxygen with this he is maiantinging his saturations. feeling thirsty. Low grade fever last night. PHYSICAL EXAM: VITAL SIGNS: As below HEAD: Atraumatic, normocephalic. NECK: Supple. No jugular venous distention (JVD). LUNGS: Bilateral rhonchi with coarse breath sounds. Heart; S1, S2 audible. irregular , No murmurs appreciated. ABDOMEN: Soft. Positive bowel sounds. Extremities: There is no pedal edema. SKIN: Intact. NEUROLOGIC: Patient awake, alert, oriented times three. Labs and radiology: Reviewed Assessment and plan: A 68-year-old male with past medical history of coronary artery disease, status post coronary artery bypass graft (CABG), status post stent placement times three, history of hypertension, diabetes, morbid obesity, obstructive sleep apnea, on continuous positive airway pressure (CPAP), presents to the emergency room from his primary medical doctor's office for severe shortness of breath and elevated temperatures. He was flu A positive at the doctor's office. When he came to the emergency room (ER),he was also found to be on chest x-ray in pulmonary edema and congestive heart failure (CHF). He was given 40 of intravenous (IV) Lasix and nebulizer, and 125 of Solu-Medrol was given. Patient also was given 5 of Lopressor for atrial fibrillation/rapid ventricular response (RVR), which is a chronic atrial fibrillation. Patient's atrial fibrillation is still in rapid response. It is between 114-150. He is still mildly short of breath. He is saturating 93% on 2 liters nasal cannula. He does have subjective feeling of fever, aches, and chills, and the onset of his symptoms was approximately 3 days ago. He will be admitted for further management. Influenza A continue Tamiflu, tylenol prn. Albuterol Post infectious bronchospasm will give albuterol and budesonide nebs CHF exacerbation known to have diastolic CHF with moderate mitral regurgitation new echo shows an EF of 60% to 65% with moderate mitral regurgitation, mild pulmonary HTN. diastolic function could not be assessed as the patient was in A fib. continue IV lasix Afib with RVR probably due to the FLU continue amiodarone and metoprolol Diabetes. sugars uncontrolled will continue glipizide and add levemir and lispro will hold metformin while in hospital. A1c ordered last one was > 10 Hypertension. losartan and metoprolol History of Morbid obesity with MARCIN On CPAP now has lost some weight. Attention deficit hyperactivity disorder (ADHD). continue home med Gastroesophageal reflux disease (GERD). Depression. continue home meds. hyperlipidemia continue statin Coronary artery disease status post CABG, status post stent placement times three. Continue ASA, statin, betablocker DVT prophylaxis has been ordered. VS,Fishbone, I+O VS, Fishbone, I+O Laboratory Tests 06/23/18 05:12 Red Blood Count 4.67, Mean Corpuscular Volume 87.6, Mean Corpuscular Hemoglobin 29.3, Mean Corpuscular Hemoglobin Concent 33.5, Red Cell Distribution Width 13.5, Neutrophils (%) (Auto) 77.6 H, Lymphocytes (%) (Auto) 12.2 L, Monocytes (%) (Auto) 9.4 H, Eosinophils (%) (Auto) 0.0, Basophils (%) (Auto) 0.2, Neutrophils # (Auto) 9.9 H, Lymphocytes # (Auto) 1.6, Monocytes # (Auto) 1.2 H, Eosinophils # (Auto) 0.0, Basophils # (Auto) 0.0 06/23/18 05:13 Calcium Level 8.0 L Vital Signs Date Time Temp Pulse Resp B/P (MAP) Pulse Ox O2 Delivery O2 Flow Rate FiO2 06/23/18 16:00 98.7 86 20 153/101 (118) 95 6.0 06/23/18 08:08 Nasal Cannula I&O- Last 24 Hours up to 6 AM 06/23/18 06:00 Intake Total 4020 ml Output Total 2300 ml Balance 1720 ml YASMANY VAZQUEZ MD Jun 23, 2018 17:00
[2018-06-24] VITALS (7 sets, daily range): BP systolic 120–151; BP diastolic 55–83
[2018-06-24] MEDS: ALBUTEROL SULFATE 2.5 MG/0.5 ML INH NEB SOLN NEB SCH ×4 (02:13→21:45)
[2018-06-24 05:33] LABS: BASO % 0.3 % (0.0-1.0); EOS % 0.3 % (0.0-3.0); HEMATOCRIT 41.1 % (42.0-52.0); HEMOGLOBIN 13.3 g/dl (13.5-17.5); LYMPH % 14.8 % (24.0-44.0); MEAN CORPUSCULAR HGB CONC 32.4 g/dl (32.0-36.5); MEAN CORPUSCULAR VOLUME 89.5 fl (80.0-96.0); MONO # 1.1 10^3/uL (0.0-0.8); MONO % 8.4 % (0.0-5.0); NEUTROPHILS # 10.2 10^3/uL (1.8-7.7); NEUTROPHILS % 75.5 % (36.0-66.0); PLATELET COUNT, AUTOMATED 201 10^3/uL (150-450); RED BLOOD COUNT 4.59 10^6/uL (4.30-6.10); WHITE BLOOD COUNT 13.5 10^3/uL (4.0-10.0)
[2018-06-24] MEDS: SLF 3 ML SYR IV SCH ×3 (05:41→22:00)
[2018-06-24 06:03] LABS: CALCIUM LEVEL 8.5 MG/DL (8.8-10.2); CREATININE FOR GFR 1.28 MG/DL (0.70-1.30); GLOMERULAR FILTRATION RATE 59.3 (>49); POTASSIUM SERUM 3.4 MEQ/L (3.5-5.1)
[2018-06-24] MEDS: BUDESONIDE 0.5 MG/2 ML INHALATION SUSPENSION INH SCH ×2 (08:07→21:45)
[2018-06-24] MEDS: HumaLOG INSULIN (NovoLOG) PER UNIT SC SCH ×4 (08:27→22:05)
[2018-06-24] MEDS: LEVEMIR (INSULIN DETEMIR) 1 UNITS/0.01ML SC SCH (08:27)
[2018-06-24] MEDS: PRAVASTATIN 20 MG TAB PO SCH (08:30)
[2018-06-24] MEDS: ADDERALL 5 MG TAB PO SCH (08:30)
[2018-06-24] MEDS: FLUoxetine 20 MG CAP PO SCH (08:30)
[2018-06-24] MEDS: POTASSIUM CHLORIDE 10 MEQ SR TABLET PO SCH ×2 (08:31→21:45)
[2018-06-24] MEDS: amLODIPine 10 MG TAB PO SCH (08:31)
[2018-06-24] MEDS: ENOXAPARIN 40 MG/0.4 ML SYRINGE (J1650) SC SCH (08:32)
[2018-06-24] MEDS: OSELTAMIVIR PHOSPHATE 75 MG CAP (TAMIFLU) PO SCH ×2 (08:32→21:45)
[2018-06-24] MEDS: LOSARTAN 50 MG TAB PO SCH (08:32)
[2018-06-24] MEDS: VITAMIN D 1,000 INTERNATIONAL UNITS TABLET PO SCH (08:32)
[2018-06-24] MEDS: METOPROLOL SUCC (TopROL XL) 100MG *XL* TAB PO SCH (08:32)
[2018-06-24] MEDS: MULTIVITAMINS/MINERALS THERAP 1 TAB PO SCH (08:33)
[2018-06-24] MEDS: glyBURIDE 2.5 MG TAB PO SCH (08:33)
[2018-06-24] MEDS: AMIODARONE 200 MG TAB (PACERONE) PO SCH (08:33)
[2018-06-24] MEDS: ASPIRIN 81 MG ENTERIC TAB PO SCH (08:33)
[2018-06-24] MEDS ORDERED: FUROSEMIDE 40 MG/4 ML VIAL (J1940) IV SCH (09:00)
--- NOTE | 2018-06-24 15:52 | IPNPDOC ---
Text Note Date of Service The patient was seen on 06/24/18. NOTE Subjective: Still feels very tired and no energy. Still no appetite but trying to eat. Says having dark colored urine. Still on 6 liters of high flow oxygen. PHYSICAL EXAM: VITAL SIGNS: As below HEAD: Atraumatic, normocephalic. NECK: Supple. No jugular venous distention (JVD). LUNGS: Bilateral rhonchi with coarse breath sounds. Heart; S1, S2 audible. irregular , No murmurs appreciated. ABDOMEN: Soft. Positive bowel sounds. Extremities: There is no pedal edema. SKIN: Intact. NEUROLOGIC: Patient awake, alert, oriented times three. Labs and radiology: Reviewed Assessment and plan: A 68-year-old male with past medical history of coronary artery disease, status post coronary artery bypass graft (CABG), status post stent placement times three, history of hypertension, diabetes, morbid obesity, obstructive sleep apnea, on continuous positive airway pressure (CPAP), presents to the emergency room from his primary medical doctor's office for severe shortness of breath and elevated temperatures. He was flu A positive at the doctor's office. When he came to the emergency room (ER),he was also found to be on chest x-ray in pulmonary edema and congestive heart failure (CHF). He was given 40 of intravenous (IV) Lasix and nebulizer, and 125 of Solu-Medrol was given. Patient also was given 5 of Lopressor for atrial fibrillation/rapid ventricular response (RVR), which is a chronic atrial fibrillation. Patient's atrial fibrillation is still in rapid response. It is between 114-150. He is still mildly short of breath. He is saturating 93% on 2 liters nasal cannula. He does have subjective feeling of fever, aches, and chills, and the onset of his symptoms was approximately 3 days ago. He will be admitted for further management. Acute respiratory failure with hypoxia due to influenza A, and CHF exacerbation continue oxygen supplementation Influenza A continue Tamiflu, tylenol prn. Albuterol Post infectious bronchospasm will give albuterol and budesonide nebs CHF exacerbation known to have diastolic CHF with moderate mitral regurgitation new echo shows an EF of 60% to 65% with moderate mitral regurgitation, mild pulmonary HTN. diastolic function could not be assessed as the patient was in A fib. continue IV lasix Afib with RVR probably due to the FLU continue amiodarone and metoprolol Diabetes. sugars uncontrolled will continue glipizide and add levemir and lispro will hold metformin while in hospital. A1c ordered last one was > 10 Hypertension. losartan and metoprolol History of Morbid obesity with MARCIN On CPAP now has lost some weight. Attention deficit hyperactivity disorder (ADHD). continue home med Gastroesophageal reflux disease (GERD). Depression. continue home meds. hyperlipidemia continue statin Coronary artery disease status post CABG, status post stent placement times three. Continue ASA, statin, betablocker DVT prophylaxis has been ordered. VS,Fishbone, I+O VS, Fishbone, I+O Laboratory Tests 06/24/18 05:09 Red Blood Count 4.59, Mean Corpuscular Volume 89.5, Mean Corpuscular Hemoglobin 29.0, Mean Corpuscular Hemoglobin Concent 32.4, Red Cell Distribution Width 13.8, Neutrophils (%) (Auto) 75.5 H, Lymphocytes (%) (Auto) 14.8 L, Monocytes ( %) (Auto) 8.4 H, Eosinophils (%) (Auto) 0.3, Basophils (%) (Auto) 0.3, Neutrophils # (Auto) 10.2 H, Lymphocytes # (Auto) 2.0, Monocytes # (Auto) 1.1 H, Eosinophils # (Auto) 0.0, Basophils # (Auto) 0.0, Calcium Level 8.5 L Vital Signs Date Time Temp Pulse Resp B/P (MAP) Pulse Ox O2 Delivery O2 Flow Rate FiO2 06/24/18 12:00 98.3 74 18 122/62 (82) 97 6.0 06/24/18 08:00 50 06/23/18 08:08 Nasal Cannula I&O- Last 24 Hours up to 6 AM 06/24/18 06:00 Intake Total 2200 ml Output Total 1550 ml Balance 650 ml YASMANY VAZQUEZ MD Jun 24, 2018 15:52
[2018-06-25] VITALS (7 sets, daily range): BP systolic 127–162; BP diastolic 62–84; O2SAT 92
[2018-06-25] MEDS: ALBUTEROL SULFATE 2.5 MG/0.5 ML INH NEB SOLN NEB SCH ×2 (02:17→07:19)
[2018-06-25] MEDS: SLF 3 ML SYR IV SCH ×3 (05:30→20:39)
[2018-06-25 05:42] LABS: BASO # 0.1 10^3/uL (0.0-0.2); BASO % 0.4 % (0.0-1.0); EOS # 0.2 10^3/uL (0.0-0.50); EOS % 1.2 % (0.0-3.0); HEMATOCRIT 39.9 % (42.0-52.0); HEMOGLOBIN 12.9 g/dl (13.5-17.5); LYMPH % 15.2 % (24.0-44.0); MEAN CORPUSCULAR HEMOGLOBIN 29.1 pg (27.0-33.0); MEAN CORPUSCULAR HGB CONC 32.3 g/dl (32.0-36.5); MEAN CORPUSCULAR VOLUME 89.9 fl (80.0-96.0); MONO # 1.1 10^3/uL (0.0-0.8); MONO % 8.9 % (0.0-5.0); NEUTROPHILS # 9.5 10^3/uL (1.8-7.7); NEUTROPHILS % 73.4 % (36.0-66.0); PLATELET COUNT, AUTOMATED 259 10^3/uL (150-450); RED BLOOD COUNT 4.44 10^6/uL (4.30-6.10); WHITE BLOOD COUNT 12.9 10^3/uL (4.0-10.0)
[2018-06-25 06:09] LABS: BLOOD UREA NITROGEN 49 MG/DL (7-18); CALCIUM LEVEL 8.4 MG/DL (8.8-10.2); CARBON DIOXIDE LEVEL 26 MEQ/L (21-32); CHLORIDE LEVEL 105 MEQ/L (98-107); CREATININE FOR GFR 1.26 MG/DL (0.70-1.30); GLOMERULAR FILTRATION RATE > 60.0 (>49); GLUCOSE, FASTING 107 MG/DL (70-100); POTASSIUM SERUM 3.6 MEQ/L (3.5-5.1); SODIUM LEVEL 137 MEQ/L (136-145)
[2018-06-25 07:19] LABS: INR 1.23; PROTHROMBIN TIME 15.7 SECONDS (12.1-14.4)
[2018-06-25] MEDS: BUDESONIDE 0.5 MG/2 ML INHALATION SUSPENSION INH SCH ×2 (07:19→18:29)
[2018-06-25] MEDS: HumaLOG INSULIN (NovoLOG) PER UNIT SC SCH ×4 (08:08→20:38)
[2018-06-25] MEDS: MULTIVITAMINS/MINERALS THERAP 1 TAB PO SCH (08:09)
[2018-06-25] MEDS: ENOXAPARIN 40 MG/0.4 ML SYRINGE (J1650) SC SCH (08:09)
[2018-06-25] MEDS: LEVEMIR (INSULIN DETEMIR) 1 UNITS/0.01ML SC SCH (08:09)
[2018-06-25] MEDS: ADDERALL 5 MG TAB PO SCH (08:09)
[2018-06-25] MEDS: VITAMIN D 1,000 INTERNATIONAL UNITS TABLET PO SCH (08:10)
[2018-06-25] MEDS: OSELTAMIVIR PHOSPHATE 75 MG CAP (TAMIFLU) PO SCH ×2 (08:10→20:39)
[2018-06-25] MEDS: ASPIRIN 81 MG ENTERIC TAB PO SCH (08:10)
[2018-06-25] MEDS: LOSARTAN 50 MG TAB PO SCH (08:11)
[2018-06-25] MEDS: POTASSIUM CHLORIDE 10 MEQ SR TABLET PO SCH ×2 (08:11→20:39)
[2018-06-25] MEDS: AMIODARONE 200 MG TAB (PACERONE) PO SCH (08:11)
[2018-06-25] MEDS: FLUoxetine 20 MG CAP PO SCH (08:12)
[2018-06-25] MEDS: METOPROLOL SUCC (TopROL XL) 100MG *XL* TAB PO SCH (08:12)
[2018-06-25] MEDS: amLODIPine 10 MG TAB PO SCH (08:12)
[2018-06-25] MEDS: glyBURIDE 2.5 MG TAB PO SCH (08:12)
[2018-06-25] MEDS: PRAVASTATIN 20 MG TAB PO SCH (08:13)
[2018-06-25] MEDS ORDERED: IPRATROPIUM 0.5MG/ALBUTEROL 2.5MG INH SOL UD 3ML (DUONEB)(J7620) NEB PRN (12:45)
--- NOTE | 2018-06-25 12:47 | IPNPDOC ---
Date Seen The patient was seen on 06/25/18. Progress Note SUBJECTIVE: Patient complains of congestion this morning, he tells me he did not sleep well last night but otherwise he does not feel entirely different from the previous days Vital signs: Please see below. GENERAL: Obese pleasant elderly man sitting up in bed he does not appear to be in acute distress he speaks in complete sentences no accessory muscle use HEENT: Cranial nerves II through XII are grossly intact no appreciable elevation in JVD CARDIOVASCULAR: S1-S2 regular she is not tachycardic. RESPIRATORY: He is moving air fairly well but there is some end expiratory wheeze throughout. ABDOMINAL: Obese bowel sounds present abdomen soft EXTREMITIES: No clubbing cyanosis or edema LABORATORY DATA, IMAGING STUDIES, MICROBIOLOGY: Please see below. Echocardiogram: 1. Normal global left ventricular systolic function with mild to moderate concentric left ventricular hypertrophy. 2. Aortic valve sclerosis with trace aortic regurgitation but no aortic stenosis. 3. Mitral annulus calcification with mildly enlarged left atrium and mild to moderate mitral regurgitation. 4. Mild tricuspid regurgitation with a normal calculated pulmonary artery systolic pressure. 5. The inferior vena cava was enlarged, central venous pressure might be elevated.. DVT prophylaxis: Lovenox Assessment and plan: A 68-year-old male with flu A and some concern for decompensated congestive heart failure as well as atrial fibrillation with rapid ventricular response. 1 Acute respiratory failure with hypoxia: Likely due to influenza A, and CHF exacerbation although after several days of diuresis he appears euvolemic and his history status is not significantly better I think the likelihood of it related pulmonary edema in his lower and more likely related to influenza. He is continued on continuous O2 currently on 5 L to attempt to wean from 80-92. Given the slow progress I will also start him on Solu-Medrol provide him with Mucinex for his congestion is continued on Pulmicort I will change his albuterol nebulizer to DuoNeb. He is also continued on Tamiflu, continues to complain of body aches 2.CHF exacerbation: As outlined above he does sense of known diastolic dysfunction his echo was suggestive of this as well as the bilateral pleural effusions however after several days of diuresis there is minimal improvement will hold off on any further diuresis at this time and moderate volume status closely 3.Afib with RVR, new diagnosis TSH within normal limits echocardiogram unrevealing for any valvular disease possibly secondary to influenza a he is on amiodarone and metoprolol and continue to monitor on telemetry. Should he not have any further episodes of his rate is controlled is likely secondary to the acute medical illness given the severity of his hypoxia however should it persist would consider long-term anticoagulation for this patient 3. Diabetes. On glipizide Levemir lispro fingersticks well controlled 4. Hypertension: losartan Norvasc and metoprolol 5. History of Morbid obesity with MARCIN On CPAP: now has lost some weight. He is compliant with CPAP during this hospitalization left some modifications advised 6. Attention deficit hyperactivity disorder (ADHD): continue home med 7. Depression. Continue with Prozac 8. hyperlipidemia: continue statin 9. Coronary artery disease status post CABG, status post stent placement times three. Continue ASA, statin, betablocker DISPOSITION: Pending improvement in hypoxia. VS, I&O, 24H, Fishbone Vital Signs/I&O Vital Signs Date Time Temp Pulse Resp B/P (MAP) Pulse Ox O2 Delivery O2 Flow Rate FiO2 06/25/18 12:00 97.7 79 18 162/70 (100) 91 5.0 06/25/18 07:19 Nasal Cannula 06/24/18 08:00 50 I&O- Last 24 Hours up to 6 AM 06/25/18 06:00 Intake Total 1190 ml Output Total 900 ml Balance 290 ml Laboratory Data 24H LABS Laboratory Tests 2 06/24/18 17:14: Bedside Glucose (Misc Panel) 317H 06/24/18 21:38: Bedside Glucose (Misc Panel) 198H 06/25/18 05:05: Immature Granulocyte % (Auto) 0.9, White Blood Count 12.9H, Red Blood Count 4.44, Hemoglobin 12.9L, Hematocrit 39.9L, Mean Corpuscular Volume 89.9, Mean Corpuscular Hemoglobin 29.1, Mean Corpuscular Hemoglobin Concent 32.3, Red Cell Distribution Width 14.1, Platelet Count 259, Neutrophils (%) (Auto) 73.4H, Lymphocytes (%) (Auto) 15.2L, Monocytes (%) (Auto) 8.9H, Eosinophils (%) (Auto) 1.2, Basophils (%) (Auto) 0.4, Neutrophils # (Auto) 9.5H, Lymphocytes # (Auto) 2.0, Monocytes # (Auto) 1.1H, Eosinophils # (Auto) 0.2, Basophils # (Auto) 0.1, Nucleated Red Blood Cells % (auto) 0.0, Anion Gap 6L, Glomerular Filtration Rate > 60.0, Blood Urea Nitrogen 49H, Creatinine 1.26, Sodium Level 137, Potassium Level 3.6, Chloride Level 105, Carbon Dioxide Level 26, Calcium Level 8.4L 06/25/18 06:43: Prothrombin Time 15.7H, Prothromb Time International Ratio 1.23 06/25/18 12:02: Bedside Glucose (Misc Panel) 268H CBC/BMP Laboratory Tests 06/25/18 05:05 Red Blood Count 4.44, Mean Corpuscular Volume 89.9, Mean Corpuscular Hemoglobin 29.1, Mean Corpuscular Hemoglobin Concent 32.3, Red Cell Distribution Width 14.1, Neutrophils (%) (Auto) 73.4 H, Lymphocytes (%) (Auto) 15.2 L, Monocytes (%) (Auto) 8.9 H, Eosinophils (%) (Auto) 1.2, Basophils (%) (Auto) 0.4, Neutrophils # (Auto) 9.5 H, Lymphocytes # (Auto) 2.0, Monocytes # (Auto) 1.1 H, Eosinophils # (Auto) 0.2, Basophils # (Auto) 0.1, Calcium Level 8.4 L Microbiology Microbiology 06/21/18 Blood Culture - Preliminary, Resulted No Growth after 72 hours. All specime... 06/21/18 Blood Culture - Preliminary, Resulted No Growth after 72 hours. All specime... OSIRIS BARRIOS MD Jun 25, 2018 12:47
[2018-06-25] MEDS: methylPREDNISolone INJ 125 MG/2 ML VIAL (J2930) IV SCH ×2 (13:09→18:08)
[2018-06-25] MEDS: guaiFENesin ER 600 MG TAB PO SCH ×2 (13:09→20:39)
[2018-06-25] MEDS: IPRATROPIUM 0.5MG/ALBUTEROL 2.5MG INH SOL UD 3ML (DUONEB)(J7620) NEB SCH ×2 (13:45→18:29)
[2018-06-25 14:12] LABS: INFLUENZA A AMPLIFICATION NEGATIVE (NEGATIVE); INFLUENZA B AMPLIFICATION NEGATIVE (NEGATIVE)
[2018-06-26] MEDS: methylPREDNISolone INJ 125 MG/2 ML VIAL (J2930) IV SCH ×4 (00:23→18:11)
[2018-06-26] MEDS: IPRATROPIUM 0.5MG/ALBUTEROL 2.5MG INH SOL UD 3ML (DUONEB)(J7620) NEB SCH ×4 (00:27→22:45)
[2018-06-26 04:00] VITALS: BP 148/90
[2018-06-26 05:25] LABS: BASO % 0.1 % (0.0-1.0); HEMOGLOBIN 13.1 g/dl (13.5-17.5); LYMPH # 0.6 10^3/uL (1.5-4.5); LYMPH % 5.6 % (24.0-44.0); MEAN CORPUSCULAR HEMOGLOBIN 28.7 pg (27.0-33.0); MEAN CORPUSCULAR HGB CONC 32.8 g/dl (32.0-36.5); MEAN CORPUSCULAR VOLUME 87.7 fl (80.0-96.0); MONO # 0.4 10^3/uL (0.0-0.8); MONO % 3.7 % (0.0-5.0); NEUTROPHILS # 10.2 10^3/uL (1.8-7.7); NEUTROPHILS % 89.9 % (36.0-66.0); PLATELET COUNT, AUTOMATED 310 10^3/uL (150-450); RED BLOOD COUNT 4.56 10^6/uL (4.30-6.10); WHITE BLOOD COUNT 11.3 10^3/uL (4.0-10.0)
[2018-06-26] MEDS: SLF 3 ML SYR IV SCH ×3 (05:55→21:15)
[2018-06-26 06:04] LABS: CALCIUM LEVEL 8.7 MG/DL (8.8-10.2); CREATININE FOR GFR 1.63 MG/DL (0.70-1.30); GLOMERULAR FILTRATION RATE 44.9 (>49); POTASSIUM SERUM 4.3 MEQ/L (3.5-5.1)
[2018-06-26] MEDS: HumaLOG INSULIN (NovoLOG) PER UNIT SC SCH ×4 (06:32→21:14)
[2018-06-26 08:00] VITALS: BP 144/81
[2018-06-26] MEDS: ENOXAPARIN 40 MG/0.4 ML SYRINGE (J1650) SC SCH (08:22)
[2018-06-26] MEDS: LEVEMIR (INSULIN DETEMIR) 1 UNITS/0.01ML SC SCH (08:22)
[2018-06-26] MEDS: AMIODARONE 200 MG TAB (PACERONE) PO SCH (08:23)
[2018-06-26] MEDS: glyBURIDE 2.5 MG TAB PO SCH (08:23)
[2018-06-26] MEDS: ADDERALL 5 MG TAB PO SCH (08:23)
[2018-06-26] MEDS: PRAVASTATIN 20 MG TAB PO SCH (08:23)
[2018-06-26] MEDS: FLUoxetine 20 MG CAP PO SCH (08:23)
[2018-06-26] MEDS: ASPIRIN 81 MG ENTERIC TAB PO SCH (08:23)
[2018-06-26] MEDS: amLODIPine 10 MG TAB PO SCH (08:24)
[2018-06-26] MEDS: POTASSIUM CHLORIDE 10 MEQ SR TABLET PO SCH ×2 (08:24→21:14)
[2018-06-26] MEDS: OSELTAMIVIR PHOSPHATE 75 MG CAP (TAMIFLU) PO SCH ×2 (08:24→21:14)
[2018-06-26] MEDS: VITAMIN D 1,000 INTERNATIONAL UNITS TABLET PO SCH (08:24)
[2018-06-26] MEDS: METOPROLOL SUCC (TopROL XL) 100MG *XL* TAB PO SCH (08:25)
[2018-06-26] MEDS: MULTIVITAMINS/MINERALS THERAP 1 TAB PO SCH (08:25)
[2018-06-26] MEDS: guaiFENesin ER 600 MG TAB PO SCH ×2 (08:25→21:13)
[2018-06-26] MEDS: LOSARTAN 50 MG TAB PO SCH (08:25)
[2018-06-26] MEDS: BUDESONIDE 0.5 MG/2 ML INHALATION SUSPENSION INH SCH ×2 (08:39→22:45)
[2018-06-26 12:00] VITALS: BP 164/85
--- NOTE | 2018-06-26 13:57 | IPNPDOC ---
Date Seen The patient was seen on 06/26/18. Progress Note SUBJECTIVE: Patient reports feeling better today with less shortness of breath. Vital signs: Please see below. GENERAL: Obese pleasant elderly man sitting up in bed he does not appear to be in acute distress HEENT: Cranial nerves II through XII are grossly intact no appreciable elevation in JVD CARDIOVASCULAR: S1-S2 regular she is not tachycardic. RESPIRATORY: He is moving air fairly well but there is some end expiratory wheeze throughout. ABDOMINAL: Obese bowel sounds present abdomen soft EXTREMITIES: No clubbing cyanosis or edema LABORATORY DATA, IMAGING STUDIES, MICROBIOLOGY: Please see below. Echocardiogram: 1. Normal global left ventricular systolic function with mild to moderate concentric left ventricular hypertrophy. 2. Aortic valve sclerosis with trace aortic regurgitation but no aortic stenosis. 3. Mitral annulus calcification with mildly enlarged left atrium and mild to moderate mitral regurgitation. 4. Mild tricuspid regurgitation with a normal calculated pulmonary artery systolic pressure. 5. The inferior vena cava was enlarged, central venous pressure might be elevated.. DVT prophylaxis: Lovenox Assessment and plan: A 68-year-old male with flu A and some concern for decompensated congestive heart failure as well as atrial fibrillation with rapid ventricular response. 1 Acute respiratory failure with hypoxia: Likely due to influenza A and possibly CHF exacerbation although after several days of diuresis he appears euvolemic and was not significantly better I think the likelihood of it related pulmonary edema is lower and more likely related to influenza. He is continued on continuous O2 but weaned from 5L to 2L today after 1 day of steroids. Con't with Mucinex for his congestion, he is continued on Pulmicort and DuoNebs. He is also continued on Tamiflu. Appears improved today. I suspect given his history of SOB prior to this he may have some underlying O2 requirement, time will tell and if so this will require further outpatient investigation. 2.CHF exacerbation: As outlined above he does sense of known diastolic dysfunction his echo was suggestive of this as well as the bilateral pleural effusions however after several days of diuresis there is minimal improvement will cont to hold off on any further diuresis at this time and moderate volume status 3.Afib with RVR, new diagnosis TSH within normal limits echocardiogram unrevealing for any valvular disease possibly secondary to influenza, he is on amiodarone and metoprolol will check an EKG, tele shows some periods of irregularity but rhythm is not clear. Should he not have any further episodes of his rate is controlled is likely secondary to the acute medical illness given the severity of his hypoxia however should it persist would consider long-term anticoagulation for this patient 3. Diabetes. On glipizide Levemir lispro fingersticks well controlled 4. Hypertension: losartan Norvasc and metoprolol 5. History of Morbid obesity with MARCIN On CPAP: now has lost some weight. He is compliant with CPAP during this hospitalization left some modifications advised 6. Attention deficit hyperactivity disorder (ADHD): continue home med 7. Depression. Continue with Prozac 8. hyperlipidemia: continue statin 9. Coronary artery disease status post CABG, status post stent placement times three. Continue ASA, statin, betablocker 10. RAFIA: new today, possibly related to diuresis from previous days? will recheck BMP at 2PM, as well as CXR to assess pleural effusion DISPOSITION: Pending improvement in hypoxia and renal function. VS, I&O, 24H, Fishbone Vital Signs/I&O Vital Signs Date Time Temp Pulse Resp B/P (MAP) Pulse Ox O2 Delivery O2 Flow Rate FiO2 06/26/18 12:00 97.2 84 18 164/85 (111) 92 2.0 06/26/18 08:40 Nasal Cannula 06/24/18 08:00 50 I&O- Last 24 Hours up to 6 AM 06/26/18 06:00 Intake Total 1270 ml Output Total 2250 ml Balance -980 ml Laboratory Data 24H LABS Laboratory Tests 2 06/25/18 17:48: Bedside Glucose (Misc Panel) 316H 06/25/18 20:12: Bedside Glucose (Misc Panel) 489H 06/26/18 05:07: Immature Granulocyte % (Auto) 0.7, White Blood Count 11.3H, Red Blood Count 4.56, Hemoglobin 13.1L, Hematocrit 40.0L, Mean Corpuscular Volume 87.7, Mean Corpuscular Hemoglobin 28.7, Mean Corpuscular Hemoglobin Concent 32.8, Red Cell Distribution Width 13.8, Platelet Count 310, Neutrophils (%) (Auto) 89.9H, Lymph ocytes (%) (Auto) 5.6L, Monocytes (%) (Auto) 3.7, Eosinophils (%) (Auto) 0.0, Basophils (%) (Auto) 0.1, Neutrophils # (Auto) 10.2H, Lymphocytes # (Auto) 0.6L, Monocytes # (Auto) 0.4, Eosinophils # (Auto) 0.0, Basophils # (Auto) 0.0, Nucleated Red Blood Cells % (auto) 0.0, Anion Gap 7L, Glomerular Filtration Rate 44.9L, Blood Urea Nitrogen 53H, Creatinine 1.63H, Sodium Level 134L, Potassium Level 4.3, Chloride Level 103, Carbon Dioxide Level 24, Calcium Level 8.7L 06/26/18 12:25: Bedside Glucose (Misc Panel) 484H CBC/BMP Laboratory Tests 06/26/18 05:07 Red Blood Count 4.56, Mean Corpuscular Volume 87.7, Mean Corpuscular Hemoglobin 28.7, Mean Corpuscular Hemoglobin Concent 32.8, Red Cell Distribution Width 13.8, Neutrophils (%) (Auto) 89.9 H, Lymphocytes (%) (Auto) 5.6 L, Monocytes (%) (Auto) 3.7, Eosinophils (%) (Auto) 0.0, Basophils (%) (Auto) 0.1, Neutrophils # (Auto) 10.2 H, Lymphocytes # (Auto) 0.6 L, Monocytes # (Auto) 0.4, Eosinophils # (Auto) 0.0, Basophils # (Auto) 0.0, Calcium Level 8.7 L Microbiology Microbiology 06/21/18 Blood Culture - Final, Complete NO GROWTH AFTER 5 DAYS 06/21/18 Blood Culture - Final, Complete NO GROWTH AFTER 5 DAYS OSIRIS BARRIOS MD Jun 26, 2018 13:57
[2018-06-26 14:54] LABS: CALCIUM LEVEL 9.8 MG/DL (8.8-10.2); CREATININE FOR GFR 1.72 MG/DL (0.70-1.30); GLOMERULAR FILTRATION RATE 42.2 (>49); POTASSIUM SERUM 4.9 MEQ/L (3.5-5.1)
--- NOTE | 2018-06-26 15:08 | REP ---
Chest x-ray: Two views. History: Assess for pulmonary edema or effusions. Comparison chest x-ray: June 21, 2018. Findings: There is a large dense new infiltrate in the right upper lobe. There is also some pulmonary parenchymal opacification in the right base. No pleural effusion is seen. Cardiomediastinal silhouette is unchanged. Prior sternotomy wires and clips are noted. Impression: New fairly large infiltrate right upper lobe consistent with pneumonia. Electronically Signed by Vinicio Manzano MD 06/26/2018 02:59 P
[2018-06-26] MEDS ORDERED: HumaLOG INSULIN (NovoLOG) PER UNIT SC ONE (15:30)
[2018-06-26 16:00] VITALS: BP 151/69
[2018-06-26 20:00] VITALS: BP 144/78
[2018-06-26] MEDS ORDERED: CEPACOL LOZENGE PO PRN (21:30)
[2018-06-27] VITALS: BP 166/92
[2018-06-27] MEDS: methylPREDNISolone INJ 125 MG/2 ML VIAL (J2930) IV SCH (00:45)
--- NOTE | 2018-06-27 01:02 | ECGEPIP ---
Stationary ECG Study [facility] Test Date: 2018-06-26 Pat Name: SUZY NARAYANAN Department: Room: [place] [address] Gender: M [employer] Technician: HECTOR : 1950 Requested By: OSIRIS BARRIOS Order Number: [id number] Reading MD: Jovanny Millan Measurements Intervals [place] Rate: 82 P: [place]: 0 QRS: 5 QRSD: 123 T: 5 QT: 425 QTc: 498 Interpretive Statements ATRIAL FIBRILLATION INFERIOR MYOCARDIAL INFARCTION, PROBABLY OLD MOST RECENT TRACING ON 06/21/2018 AT 10:52:49 A.M.. PATIENT THEN ALSO WAS IN ATRIAL FIBRILLATION BUT WITH A RAPID VENTRICULAR RATE Electronically Signed On 06-27-2018 1:02:00 EDT by Jovanny Millan
[2018-06-27] MEDS: IPRATROPIUM 0.5MG/ALBUTEROL 2.5MG INH SOL UD 3ML (DUONEB)(J7620) NEB SCH ×4 (02:00→19:25)
[2018-06-27 04:00] VITALS: BP 162/82
[2018-06-27 05:16] LABS: BASO % 0.2 % (0.0-1.0); HEMATOCRIT 41.3 % (42.0-52.0); HEMOGLOBIN 13.4 g/dl (13.5-17.5); LYMPH # 0.9 10^3/uL (1.5-4.5); LYMPH % 3.7 % (24.0-44.0); MEAN CORPUSCULAR HEMOGLOBIN 28.8 pg (27.0-33.0); MEAN CORPUSCULAR HGB CONC 32.4 g/dl (32.0-36.5); MEAN CORPUSCULAR VOLUME 88.6 fl (80.0-96.0); MONO % 4.2 % (0.0-5.0); NEUTROPHILS # 22.3 10^3/uL (1.8-7.7); NEUTROPHILS % 90.4 % (36.0-66.0); PLATELET COUNT, AUTOMATED 405 10^3/uL (150-450); RED BLOOD COUNT 4.66 10^6/uL (4.30-6.10); WHITE BLOOD COUNT 24.6 10^3/uL (4.0-10.0)
[2018-06-27 05:34] LABS: CREATININE FOR GFR 1.6 MG/DL (0.70-1.30); GLOMERULAR FILTRATION RATE 45.9 (>49); POTASSIUM SERUM 4.7 MEQ/L (3.5-5.1)
[2018-06-27] MEDS: SLF 3 ML SYR IV SCH ×3 (06:00→22:00)
[2018-06-27] MEDS: BUDESONIDE 0.5 MG/2 ML INHALATION SUSPENSION INH SCH ×2 (07:27→19:25)
[2018-06-27 08:00] VITALS: BP 124/60
[2018-06-27] MEDS: ENOXAPARIN 40 MG/0.4 ML SYRINGE (J1650) SC SCH (08:17)
[2018-06-27] MEDS: LEVEMIR (INSULIN DETEMIR) 1 UNITS/0.01ML SC SCH (08:18)
[2018-06-27] MEDS: HumaLOG INSULIN (NovoLOG) PER UNIT SC SCH ×4 (08:18→20:55)
[2018-06-27] MEDS: AMIODARONE 200 MG TAB (PACERONE) PO SCH (08:19)
[2018-06-27] MEDS: OSELTAMIVIR PHOSPHATE 75 MG CAP (TAMIFLU) PO SCH ×2 (08:19→20:55)
[2018-06-27] MEDS: PRAVASTATIN 20 MG TAB PO SCH (08:19)
[2018-06-27] MEDS: POTASSIUM CHLORIDE 10 MEQ SR TABLET PO SCH ×2 (08:19→20:55)
[2018-06-27] MEDS: ASPIRIN 81 MG ENTERIC TAB PO SCH (08:19)
[2018-06-27] MEDS: ADDERALL 5 MG TAB PO SCH (08:19)
[2018-06-27] MEDS: LOSARTAN 50 MG TAB PO SCH (08:20)
[2018-06-27] MEDS: VITAMIN D 1,000 INTERNATIONAL UNITS TABLET PO SCH (08:21)
[2018-06-27] MEDS: amLODIPine 10 MG TAB PO SCH (08:21)
[2018-06-27] MEDS: guaiFENesin ER 600 MG TAB PO SCH ×2 (08:21→20:55)
[2018-06-27] MEDS: METOPROLOL SUCC (TopROL XL) 100MG *XL* TAB PO SCH (08:21)
[2018-06-27] MEDS: predniSONE 20 MG TAB PO SCH (08:21)
[2018-06-27] MEDS: FLUoxetine 20 MG CAP PO SCH (08:21)
[2018-06-27] MEDS: MULTIVITAMINS/MINERALS THERAP 1 TAB PO SCH (08:22)
[2018-06-27] MEDS: glyBURIDE 2.5 MG TAB PO SCH (08:24)
[2018-06-27 12:00] VITALS: BP 140/60
--- NOTE | 2018-06-27 13:13 | IPNPDOC ---
Date Seen The patient was seen on 06/27/18. Progress Note SUBJECTIVE: Patient reports feeling much better today no new complaints Vital signs: Please see below. GENERAL: Obese pleasant elderly man sitting up in bed he does not appear to be in acute distress HEENT: Cranial nerves II through XII are grossly intact no appreciable elevation in JVD CARDIOVASCULAR: S1-S2 regular. RESPIRATORY: He is moving air fairly well but there is some end expiratory wheeze throughout. ABDOMINAL: Obese bowel sounds present abdomen soft EXTREMITIES: No clubbing cyanosis or edema LABORATORY DATA, IMAGING STUDIES, MICROBIOLOGY: Please see below. Echocardiogram: 1. Normal global left ventricular systolic function with mild to moderate concentric left ventricular hypertrophy. 2. Aortic valve sclerosis with trace aortic regurgitation but no aortic stenosis. 3. Mitral annulus calcification with mildly enlarged left atrium and mild to moderate mitral regurgitation. 4. Mild tricuspid regurgitation with a normal calculated pulmonary artery systolic pressure. 5. The inferior vena cava was enlarged, central venous pressure might be elevated.. DVT prophylaxis: Lovenox Assessment and plan: A 68-year-old male with flu A and some concern for decompensated congestive heart failure as well as atrial fibrillation with rapid ventricular response. 1 Acute respiratory failure with hypoxia: Likely due to influenza A and possibly CHF exacerbation although after several days of diuresis he appears euvolemic and was not significantly better I think the likelihood of it related pulmonary edema is lower and more likely related to influenza. He is continued on continuous O2 but weaned quickly over last 2 days. Con't with Mucinex for his congestion, he is continued on Pulmicort and DuoNebs. He is also continued on Tamiflu. Appears improved today. I will have him seen by physical therapy I suspect may be able to go home within the next 48 hours I will have maintaining O2 sat checked and transfer him to the [facility] floor 2.CHF exacerbation: As outlined above he does sense of known diastolic dysfunction his echo was suggestive of this as well as the bilateral pleural effusions however after several days of diuresis there is minimal improvement will cont to hold off on any further diuresis at this time and monitor his volume status . He did have some mild AK I repeat chest x-ray did not reveal any pleural effusions 3.Afib with RVR, an old diagnosis she is normally on Xarelto at home which I'll restart strangely this was left off of his medication reconciliation at diagnosis he is rate controlled with amiodarone and metoprolol. 3. Diabetes. On glipizide Levemir lispro fingersticks well controlled 4. Hypertension: losartan Norvasc and metoprolol 5. History of Morbid obesity with MARCIN On CPAP: now has lost some weight. He is compliant with CPAP during this hospitalization left some modifications advised 6. Attention deficit hyperactivity disorder (ADHD): continue home med 7. Depression. Continue with Prozac 8. hyperlipidemia: continue statin 9. Coronary artery disease status post CABG, status post stent placement times three. Continue ASA, statin, betablocker 10. RAFIA: new today, possibly related to diuresis from previous days. Appears stable continue to monitor with daily labs will DISPOSITION: Pending improvement in hypoxia and renal function. VS, I&O, 24H, Fishbone Vital Signs/I&O Vital Signs Date Time Temp Pulse Resp B/P (MAP) Pulse Ox O2 Delivery O2 Flow Rate FiO2 06/27/18 12:00 97.5 70 19 140/60 (86) 90 2.0 06/26/18 08:40 Nasal Cannula 06/24/18 08:00 50 I&O- Last 24 Hours up to 6 AM 06/27/18 06:00 Intake Total 1580 ml Output Total 3075 ml Balance -1495 ml Laboratory Data 24H LABS Laboratory Tests 2 06/26/18 13:42: Anion Gap 9, Glomerular Filtration Rate 42.2L, Blood Urea Nitrogen 55H, Creatinine 1.72H, Sodium Level 133L, Potassium Level 4.9, Chloride Level 101, Carbon Dioxide Level 23, Calcium Level 9.8 06/26/18 17:31: Bedside Glucose (Misc Panel) 430H 06/26/18 20:59: Bedside Glucose (Misc Panel) 468H 06/27/18 04:58: Anion Gap 9, Glomerular Filtration Rate 45.9L, Blood Urea Nitrogen 51H, Creatinine 1.60H, Sodium Level 137, Potassium Level 4.7, Chloride Level 105, Carbon Dioxide Level 23, Calcium Level 9.0, Immature Granulocyte % (Auto) 1.5, White Blood Count 24.6H, Red Blood Count 4.66, Hemoglobin 13.4L, Hematocrit 41.3L, Mean Corpuscular Volume 88.6, Mean Corpuscular Hemoglobin 28.8, Mean Corpuscular Hemoglobin Concent 32.4, Red Cell Distribution Width 14.2, Platelet Count 405, Neutrophils (%) (Auto) 90.4H, Lymphocytes (%) (Auto) 3.7L, Monocytes (%) (Auto) 4.2, Eosinophils (%) (Auto) 0.0, Basophils (%) (Auto) 0.2, Neutrophils # (Auto) 22.3H, Lymphocytes # (Auto) 0.9L, Monocytes # (Auto) 1.0H, Eosinophils # (Auto) 0.0, Basophils # (Auto) 0.0, Nucleated Red Blood Cells % (auto) 0.0 06/27/18 12:17: Bedside Glucose (Misc Panel) 439H CBC/BMP Laboratory Tests 06/26/18 13:42 Calcium Level 9.8 06/27/18 04:58 Calcium Level 9.0, Red Blood Count 4.66, Mean Corpuscular Volume 88.6, Mean Corpuscular Hemoglobin 28.8, Mean Corpuscular Hemoglobin Concent 32.4, Red Cell Distribution Width 14.2, Neutrophils (%) (Auto) 90.4 H, Lymphocytes (%) (Auto) 3.7 L, Monocytes (%) (Auto) 4.2, Eosinophils (%) (Auto) 0.0, Basophils (%) (Auto) 0.2, Neutrophils # (Auto) 22.3 H, Lymphocytes # (Auto) 0.9 L, Monocytes # (Auto) 1.0 H, Eosinophils # (Auto) 0.0, Basophils # (Auto) 0.0 Microbiology Microbiology 06/21/18 Blood Culture - Final, Complete NO GROWTH AFTER 5 DAYS 06/21/18 Blood Culture - Final, Complete NO GROWTH AFTER 5 DAYS OSIRIS BARRIOS MD Jun 27, 2018 13:12
[2018-06-27 14:00] VITALS: BP 144/88
[2018-06-27] MEDS ORDERED: RIVAROXABAN 15 MG TAB (XARELTO) PO SCH (18:00)
[2018-06-27 22:00] VITALS: BP 144/87
[2018-06-28] MEDS: IPRATROPIUM 0.5MG/ALBUTEROL 2.5MG INH SOL UD 3ML (DUONEB)(J7620) NEB SCH ×2 (01:33→07:30)
[2018-06-28] MEDS: SLF 3 ML SYR IV SCH (05:19)
[2018-06-28 05:58] LABS: BASO # 0.1 10^3/uL (0.0-0.2); BASO % 0.3 % (0.0-1.0); HEMOGLOBIN 13.8 g/dl (13.5-17.5); LYMPH # 1.9 10^3/uL (1.5-4.5); MEAN CORPUSCULAR HEMOGLOBIN 28.8 pg (27.0-33.0); MEAN CORPUSCULAR HGB CONC 32.1 g/dl (32.0-36.5); MEAN CORPUSCULAR VOLUME 89.8 fl (80.0-96.0); MONO # 1.8 10^3/uL (0.0-0.8); MONO % 7.5 % (0.0-5.0); NEUTROPHILS # 19.4 10^3/uL (1.8-7.7); PLATELET COUNT, AUTOMATED 505 10^3/uL (150-450); RED BLOOD COUNT 4.79 10^6/uL (4.30-6.10); WHITE BLOOD COUNT 23.7 10^3/uL (4.0-10.0)
[2018-06-28 06:00] VITALS: BP 146/80
[2018-06-28 06:28] LABS: CALCIUM LEVEL 8.9 MG/DL (8.8-10.2); CREATININE FOR GFR 1.31 MG/DL (0.70-1.30); GLOMERULAR FILTRATION RATE 57.8 (>49); POTASSIUM SERUM 4.3 MEQ/L (3.5-5.1)
[2018-06-28] MEDS: BUDESONIDE 0.5 MG/2 ML INHALATION SUSPENSION INH SCH (07:30)
[2018-06-28] MEDS: ASPIRIN 81 MG ENTERIC TAB PO SCH (07:51)
[2018-06-28] MEDS: FLUoxetine 20 MG CAP PO SCH (07:52)
[2018-06-28] MEDS: glyBURIDE 2.5 MG TAB PO SCH (07:57)
[2018-06-28] MEDS: predniSONE 20 MG TAB PO SCH (07:57)
[2018-06-28] MEDS: amLODIPine 10 MG TAB PO SCH (07:57)
[2018-06-28] MEDS: guaiFENesin ER 600 MG TAB PO SCH (07:57)
[2018-06-28] MEDS: AMIODARONE 200 MG TAB (PACERONE) PO SCH (07:58)
[2018-06-28] MEDS: POTASSIUM CHLORIDE 10 MEQ SR TABLET PO SCH (07:58)
[2018-06-28] MEDS: LOSARTAN 50 MG TAB PO SCH (07:58)
[2018-06-28 07:59] VITALS: BP 142/86
[2018-06-28] MEDS: ADDERALL 5 MG TAB PO SCH (07:59)
[2018-06-28] MEDS: PRAVASTATIN 20 MG TAB PO SCH (07:59)
[2018-06-28] MEDS: VITAMIN D 1,000 INTERNATIONAL UNITS TABLET PO SCH (07:59)
[2018-06-28] MEDS: METOPROLOL SUCC (TopROL XL) 100MG *XL* TAB PO SCH (07:59)
[2018-06-28] MEDS: OSELTAMIVIR PHOSPHATE 75 MG CAP (TAMIFLU) PO SCH (07:59)
[2018-06-28] MEDS: MULTIVITAMINS/MINERALS THERAP 1 TAB PO SCH (07:59)
[2018-06-28] MEDS: HumaLOG INSULIN (NovoLOG) PER UNIT SC SCH ×2 (08:00→12:26)
[2018-06-28] MEDS: LEVEMIR (INSULIN DETEMIR) 1 UNITS/0.01ML SC SCH (08:00)
[2018-06-28] MEDS ORDERED: PRED20TA PO (12:12)
[2018-06-28] MEDS ORDERED: XARE15TA PO (12:12)
[2018-06-28] MEDS ORDERED: OSEL75CA2 PO (12:12)
--- NOTE | 2018-06-28 17:55 | DSES ---
DATE OF ADMISSION: 06/21/2018 DATE OF DISCHARGE: 06/28/2018 DISCHARGE DIAGNOSIS: Hypoxic respiratory failure. SECONDARY DIAGNOSES: Influenza A, chronic congestive heart failure, atrial fibrillation with rapid ventricular response, diabetes, hypertension, morbid obesity, obstructive sleep apnea, attention deficit hyperactivity disorder, depression, dyslipidemia, coronary artery disease. HOSPITAL COURSE: The patient is a 68-year-old man who presented on 06/21/2018. At that time, his presenting complaint was shortness of breath and fever. He was found to have influenza A. He was brought to the emergency room and his chest x-ray was suggestive of some pulmonary edema, thought with evidence of congestive heart failure. He did receive some diuresis initially, however it did not have any improvement in his respiratory status and he did have a significant oxygen requirement which persisted. His fevers gradually resolved. He was started on Tamiflu. He was on steroids as well. It took several days for his oxygen requirement to resolve. Today, he is able to be up and ambulate independently without any oxygen and is doing much better. SUBJECTIVE: The patient tells me that he is feeling well and would like to go home. He has no complaints or shortness of breath, cough, fevers, chills, nausea, vomiting, or diarrhea. OBJECTIVE: VITAL SIGNS: Temperature 96.8, pulse 91, respiratory rate 18, blood pressure 146/80, oxygen saturation 89% on room air while ambulating. GENERAL: He is an obese, man sitting up in bed speaking in complete sentences. He does not appear to be in any acute distress. HEENT: Cranial nerves II-XII are grossly intact. He has moist mucous membranes. No elevation in central venous pressure (CVP). CARDIOVASCULAR EXAM: S1, S2, irregularly irregular, not tachycardiac. RESPIRATORY EXAM: Actually quite clear today with good air movement. ABDOMINAL EXAM: Grossly obese. EXTREMITIES: No clubbing, cyanosis, or edema. LABORATORY STUDIES: WBC 23.7, hemoglobin 13.8, platelet count 505. Chemistry panel: Sodium 141, potassium 4.3, chloride 108, bicarbonate 24, BUN 41, creatinine 1.3, down from a peak of 1.7 during this hospitalization. Microbiology: Blood cultures were negative. On 06/21/2018, the patient did have a CT scan that revealed bilateral pleural effusions with cardiomegaly, hazy ground glass opacities in the mid and lower lung smith with shaggy densities prominent in the septa of the lower lung field suggestive of pulmonary edema. ASSESSMENT AND PLAN: This is a 68-year-old man with hypoxic respiratory failure secondary to influenza. 1. Hypoxic respiratory failure secondary to influenza. When the patient presented there was initially some concern of decompensated congestive heart failure, however my suspicion for this is much lower. He did receive several days of diuresis but this did not actually improve his respiratory status. With steroids and Tamiflu he did progressively show improvement in his symptoms. At this time, he is at his functional baseline. He will be discharged home to complete a 10 day course of Tamiflu. Followup with his primary care provider (PCP) within 7 days. He will continue prednisone for one more day, finishing a taper. Otherwise, his activity is as tolerated. His diet is as prior to admission. He has been advised to return to the emergency room (ER) if his symptoms worsen. 2. Atrial fibrillation. Initially was felt to be a new diagnosis and strangely his home Xarelto was kept off of his medication list, however his atrial fibrillation is old. He is rate controlled with amiodarone and metoprolol and he is normally on Xarelto which was restarted during this hospitalization and is a normal home medication for him. 3. Diabetes. He was on glipizide, Levemir, and Lispro while hospitalized. 4. Hypertension. Controlled with losartan, Norvasc, and metoprolol. 5. History of morbid obesity. He is on continuous positive airway pressure (CPAP) for his obstructive sleep apnea (MARCIN). Lifestyle modifications were advised. 6. Attention deficit hyperactivity disorder. He was continued on his Adderall. 7. Depression. He was continued on Prozac. 8. Dyslipidemia. He was continued on a statin. 9. Coronary artery disease. He was continued on aspirin, statin, and beta leanne. 10. Acute kidney injury. Likely related to his diuresis and did resolve while he was hospitalized without any intervention. MEDICATIONS: At the time of discharge: - Tamiflu 75 mg twice a day for 3 days - prednisone 20 mg daily for 1 day - Xarelto 15 mg daily - amiodarone 200 mg daily - amlodipine 10 mg every third day - Adderall 10 mg daily - aspirin 81 mg daily - vitamin D 1000 units daily - fish oil 1200 mg daily - fluoxetine 40 mg daily - torsemide 40 mg daily - glyburide 5 mg daily - losartan 100 mg daily - metformin 1 gram twice a day - metoprolol succinate 100 mg daily - multivitamin one tablet daily - pravastatin 80 mg daily Greater than 30 minutes spent organizing disposition.
== END 2018-06-28 12:10 | disposition home or self-care (01) | DRG 193 ==
LOC: M ED 10:21 → M ED INP 17:53 → M PCU 21:07 → M ED INP 21:21 → M PCU 21:57 → M MSPAV 06-27 13:58
PROVIDERS: ADMIT Internal Medicine; ATTEND Internal Medicine
DX: J10.1 Influenza due to other identified influenza virus with other respiratory manifestations (principal); J96.01 Acute respiratory failure with hypoxia; I50.32 Chronic diastolic (congestive) heart failure; N17.9 Acute kidney failure, unspecified; E11.65 Type 2 diabetes mellitus with hyperglycemia; I11.0 Hypertensive heart disease with heart failure; E66.01 Morbid (severe) obesity due to excess calories; I48.2 Chronic atrial fibrillation; F90.9 Attention-deficit hyperactivity disorder, unspecified type; E87.6 Hypokalemia; K21.9 Gastro-esophageal reflux disease without esophagitis; F32.9 Major depressive disorder, single episode, unspecified; G47.33 Obstructive sleep apnea (adult) (pediatric); I25.10 Atherosclerotic heart disease of native coronary artery without angina pectoris; Z79.82 Long term (current) use of aspirin; Z79.84 Long term (current) use of oral hypoglycemic drugs; Z95.5 Presence of coronary angioplasty implant and graft; Z68.35 Body mass index [BMI] 35.0-35.9, adult

== ENCOUNTER 2018-09-25 06:05 | Day surgery (SDC) | payer MEDICARE ==
[~2018-09-25] VITALS: Ht 170.2 cm; Wt 107.0 kg
[~2018-09-25 06:05] MED LIST changes: -/MOXI40TA PO; +ADDE10TA PO; -ASPI81TA PO; +AVEL1TAB2 PO; +CHIL1CHW5 PO; +D 101000 PO; +FISH1200 PO; +GLIM4TAB PO; +LR 1,000 ML IV ONE; +OMEP40CA2 PO; +OSEL75CA2 PO; -PRAD150C PO; +PRAD150C6 PO; +PRED20TA PO; +PROZ40CA PO; +SPIR-10 PO; +VITMTA PO; +XARE15TA PO; +XARE20TA PO
[2018-09-25] MEDS ORDERED: JANU100T (06:39)
[2018-09-25] MEDS ORDERED: PROPOFOL 200 MG/20 ML VIAL As Ordered ONE (07:03)
[2018-09-25] MEDS ORDERED: LIDOCAINE 2% INJ 100 MG/5 ML SDV (FOR ANES.) As Ordered ONE (07:03)
--- NOTE | 2018-09-25 07:44 | RO ---
DATE OF PROCEDURE: 09/25/2018 DIAGNOSIS: Atrial fibrillation. PROCEDURE: Cardioversion. SURGEON: Dr. Abhi Mcintyre [employer] OFFICER: None ANESTHESIA: Howie Rosas CRNA BRIEF HISTORY: Mr. Payne is a 68-year-old man who has history of coronary artery disease with history of coronary artery bypass graft (CABG) and now has persistent atrial fibrillation in spite of amiodarone use. He feels a little more short of breath while in atrial fibrillation compared to sinus rhythm and consequently decided to pursue with DC cardioversion for symptomatic benefit. He already had the procedure once before approximately two years ago. He did sign appropriate consent on outpatient basis. PROCEDURE NOTE: The patient was brought to the recovery room in fasting condition. After appropriate time out was taken, he was sedated by anesthesiology. Defibrillator patches were applied in anterior position. When appropriate level of sedation was accomplished, he was cardioverted with 200 joules of energy applied in synchronized fashion in biphasic mode. It led to mandaen of sinus mechanism. There was no post conversion pause. The patient tolerated the procedure well. The only abnormality was hypoxemia. He came to the hospital saturating only 90% on room air. It did not appreciably change during the procedure. The patient will be discharged home after he meets appropriate criteria. He will resume preadmission medications. OWEN
[2018-09-25] MEDS ORDERED: LR 1,000 ML IV SCH (08:00)
[2018-09-25 08:17] VITALS: BP 149/80
--- NOTE | 2018-09-25 17:28 | ECGEPIP ---
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
--- NOTE | 2018-09-25 17:31 | ECGEPIP ---
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
== END 2018-09-25 08:45 | disposition home or self-care (01) ==
LOC: M SDC 06:05
PROVIDERS: ATTEND Internal Medicine Cardiovascular Disease
DX: I48.1 Persistent atrial fibrillation (principal); I25.10 Atherosclerotic heart disease of native coronary artery without angina pectoris; I10 Essential (primary) hypertension; Z95.1 Presence of aortocoronary bypass graft; Z79.01 Long term (current) use of anticoagulants; E11.9 Type 2 diabetes mellitus without complications; G47.30 Sleep apnea, unspecified; F41.9 Anxiety disorder, unspecified; F32.9 Major depressive disorder, single episode, unspecified; E78.5 Hyperlipidemia, unspecified; Z87.891 Personal history of nicotine dependence; Z79.899 Other long term (current) drug therapy; Z79.84 Long term (current) use of oral hypoglycemic drugs

== ENCOUNTER → 2019-05-10 | Outpatient (CLI) | payer MEDICARE ==
[~2019-05-10] MED LIST changes: -GLIM4TAB PO; +GLIM4TAB5 PO; +JANU100T; -LR 1,000 ML IV ONE; -OMEP40CA2 PO; +OMEP40CA97 PO
[2019-05-10 19:44] LABS: HEMOGLOBIN A1c 11.9 %
[2019-05-10 20:12] LABS: ALBUMIN 3.7 GM/DL (3.2-5.2); BILIRUBIN,TOTAL 0.5 MG/DL (0.2-1.0); CALCIUM LEVEL 9.2 MG/DL (8.8-10.2); CHOLESTEROL RISK RATIO 6.774 (<5); CREATININE FOR GFR 1.36 MG/DL (0.70-1.30); GLOMERULAR FILTRATION RATE 55.3 (>49); POTASSIUM SERUM 4.1 MEQ/L (3.5-5.1); TOTAL PROTEIN 7.1 GM/DL (6.4-8.2)
[2019-05-13 14:46] LABS: CREATININE, URINE 72.8 MG/DL; MALB URINE SIEMENS 71.1 MG/L; MAU/CREAT RATIO 97.6 MCG/MG (0.0-30.0)
== END ==
LOC: M PLALAB 14:16
PROVIDERS: ATTEND Physician Assistant Medical
DX: E11.65 Type 2 diabetes mellitus with hyperglycemia (principal)

== ENCOUNTER → 2019-11-25 | Outpatient (CLI) | payer MEDICARE ==
[~2019-11-25] MED LIST changes: -AMIO200T PO; +AMIO200T3 PO; -AMLO10TA5 PO; +AMLO1TAB25 PO; -ASPI81TA85 PO; +ASPI81TA86 PO
--- NOTE | 2019-12-19 14:38 | PFTRPT ---
Visit Date: 11/25/2019 Second ID: [id number] Referring Doctor: MD Francisco Javier, [employer] Height: 68.00 Inches Weight: 232.00 Lbs BSA: 2.18 Diagnosis: AMIODARONE USE Study has excellent technical quality. Forced vital capacity is normal. FEV1 proportionate with adequate exchange noted. Expiratory flow volume loop is normal. Total lung capacity normal. Residual volume proportionate. Diffusion capacity although reduced is appropriate for alveolar volume and no hemoglobin available for correction. Airway resistance and conductance are normal. IMPRESSION: Moderate reduction in the absolute diffusion capacity, requires clinical correlation as there is no hemoglobin available for correlation. MTDD
--- NOTE | 2019-12-20 14:28 | PULFX ---
ORDERING PHYSICIAN: Dr. Rodriguez Pre and post bronchodilator therapy have excellent technical quality. Forced vital capacity is normal. FEV-1 generally proportionate with adequate exchange normal. Expiratory limited flow volume loop was normal. No significant bronchodilator response is identified. Total lung capacity normal. Residual volume borderline for any trapping. Diffusion capacity although reduced remains reduced when corrected for alveolar volume. Hemoglobin acceptable at 14.5. are normal. IMPRESSION: Mild diffusion capacity impairment. Please correlate clinically MTDD
== END ==
LOC: M CARPUL 10:47
PROVIDERS: ATTEND Internal Medicine Cardiovascular Disease
DX: Z79.899 Other long term (current) drug therapy (principal)

== ENCOUNTER → 2019-12-25 | Outpatient (CLI) | payer MEDICARE ==
--- NOTE | 2020-01-08 10:55 | REP ---
URINARY TRACT SONOGRAPHY HISTORY: Chronic kidney disease. SONOGRAPHIC FINDINGS: Scanning at the level of the urinary bladder shows no bladder wall abnormality. The bladder is not well distended. Renal cortical echogenicity pattern is normal and contours are smooth. Right kidney measures 11.8 x 5.3 x 5.8 cm. Left renal dimensions are 12.2 x 5.1 x 5.3 cm. No hydronephrosis is seen. No cyst or mass or calculus is observed. IMPRESSION: Unremarkable urinary tract sonography. MTDD
== END ==
LOC: M RAD 15:46
PROVIDERS: ATTEND Internal Medicine Nephrology
DX: N18.3 Chronic kidney disease, stage 3 (moderate) (principal)

== ENCOUNTER → 2020-05-18 | Outpatient (CLI) | payer MEDICARE ==
[2020-05-18 16:32] LABS: CREATININE, URINE 66.8 MG/DL; MALB URINE SIEMENS 11.4 MG/L
[2020-05-18 16:35] LABS: ALBUMIN 3.8 GM/DL (3.2-5.2); BILIRUBIN,TOTAL 0.6 MG/DL (0.2-1.0); CALCIUM LEVEL 9.6 MG/DL (8.8-10.2); CHOLESTEROL RISK RATIO 5.151 (<5); CREATININE FOR GFR 1.86 MG/DL (0.70-1.30); GLOMERULAR FILTRATION RATE 38.3 (>42); POTASSIUM SERUM 5.2 MEQ/L (3.5-5.1)
[2020-05-18 19:47] LABS: HEMOGLOBIN A1c 11.7 %
== END ==
LOC: M PLALAB 12:33
PROVIDERS: ATTEND Nurse Practitioner Family
DX: I10 Essential (primary) hypertension (principal); E78.5 Hyperlipidemia, unspecified; E11.22 Type 2 diabetes mellitus with diabetic chronic kidney disease

== ENCOUNTER → 2020-08-17 | Outpatient (CLI) | payer MEDICARE ==
[~2020-08-17] MED LIST changes: +GLYB2.5T7 PO; -GLYB25TA PO
[2020-08-17 18:48] LABS: BASO # 0.1 10^3/uL (0.0-0.2); BASO % 0.9 % (0.0-1.0); EOS # 0.6 10^3/uL (0.0-0.5); EOS % 7.2 % (0.0-3.0); HEMATOCRIT 47.4 % (42.0-52.0); HEMOGLOBIN 15.7 g/dl (13.5-17.5); LYMPH # 2.2 10^3/uL (1.5-5.0); LYMPH % 24.9 % (24.0-44.0); MEAN CORPUSCULAR HGB CONC 33.1 g/dl (32.0-36.5); MEAN CORPUSCULAR VOLUME 93.5 fl (80.0-96.0); MONO # 0.7 10^3/uL (0.0-0.8); MONO % 7.6 % (2.0-8.0); NEUTROPHILS # 5.2 10^3/uL (1.5-8.5); NEUTROPHILS % 58.4 % (36.0-66.0); PLATELET COUNT, AUTOMATED 165 10^3/uL (150-450); RED BLOOD COUNT 5.07 10^6/uL (4.30-6.10); WHITE BLOOD COUNT 8.9 10^3/uL (4.0-10.0)
[2020-08-17 19:54] LABS: CALCIUM LEVEL 8.9 MG/DL (8.8-10.2); CREATININE FOR GFR 1.33 MG/DL (0.70-1.30); FREE T4 1.18 NG/DL (0.76-1.46); GLOMERULAR FILTRATION RATE 56.4 (>42); POTASSIUM SERUM 4.5 MEQ/L (3.5-5.1); THYROID STIMULATING HORMONE 0.869 uIU/ML (0.358-3.740)
== END ==
LOC: M PLALAB 14:34
PROVIDERS: ATTEND Internal Medicine Cardiovascular Disease
DX: I48.0 Paroxysmal atrial fibrillation (principal); Z01.810 Encounter for preprocedural cardiovascular examination

== ENCOUNTER → 2021-05-26 | Outpatient (CLI) | payer MEDICARE ==
[~2021-05-26] MED LIST changes: -AMIO200T3 PO; +AMIO200T49 PO; +ECOT81TA5 PO; +FLUO20CA22 PO; +GLIP5TAB8 PO; +HUMU1INJ2 SQ; -KLOR20TA42 FT; +LOSA100T45 PO; -LOSA100T50 PO; +METO25TA4 PO; +OMEP40CA4 PO; -OMEP40CA97 PO; +POTA-141 FT
[2021-05-26 17:37] LABS: HEMOGLOBIN A1c 10.4 %
[2021-05-26 17:53] LABS: ALBUMIN 3.7 GM/DL (3.2-5.2); BILIRUBIN,TOTAL 0.7 MG/DL (0.2-1.0); CHOLESTEROL RISK RATIO 5.848 (<5); CREATININE FOR GFR 1.46 MG/DL (0.70-1.30); GLOMERULAR FILTRATION RATE 50.5 (>42); TOTAL PROTEIN 7.5 GM/DL (6.4-8.2)
[2021-05-26 18:14] LABS: MAU/CREAT RATIO 218.6 MCG/MG (0.0-30.0)
== END ==
LOC: M PLALAB 14:47
PROVIDERS: ATTEND Nurse Practitioner Family
DX: I10 Essential (primary) hypertension (principal); Z79.899 Other long term (current) drug therapy

== ENCOUNTER → 2021-07-22 | Outpatient (REF) | payer MEDICARE | LOC: M LAB REF 16:56 | PROVIDERS: ATTEND Family Medicine | DX: R35.0 Frequency of micturition (principal) ==

== ENCOUNTER 2021-10-06 12:07 | Emergency (ER) | payer MEDICARE ==
[~2021-10-06] VITALS: Ht 172.7 cm; Wt 97.7 kg
[2021-10-06] MEDS ORDERED: METOPROLOL TART 25 MG TABLET PO ONE (12:55)
[2021-10-06 12:57] LABS: BASO # 0.1 10^3/uL (0.0-0.2); BASO % 0.5 % (0.0-1.0); EOS # 0.1 10^3/uL (0.0-0.5); EOS % 0.4 % (0.0-3.0); HEMATOCRIT 41.6 % (42.0-52.0); HEMOGLOBIN 14.2 g/dl (13.5-17.5); LYMPH # 1.3 10^3/uL (1.5-5.0); LYMPH % 7.6 % (24.0-44.0); MEAN CORPUSCULAR HEMOGLOBIN 30.7 pg (27.0-33.0); MEAN CORPUSCULAR HGB CONC 34.1 g/dl (32.0-36.5); MEAN CORPUSCULAR VOLUME 89.8 fl (80.0-96.0); MONO # 1.2 10^3/uL (0.0-0.8); MONO % 7.1 % (2.0-8.0); NEUTROPHILS # 13.9 10^3/uL (1.5-8.5); PLATELET COUNT, AUTOMATED 256 10^3/uL (150-450); RED BLOOD COUNT 4.63 10^6/uL (4.30-6.10); WHITE BLOOD COUNT 16.8 10^3/uL (4.0-10.0)
[2021-10-06] MEDS ORDERED: SERTRALINE (13:23)
[2021-10-06 13:24] LABS: CALCIUM LEVEL 8.6 MG/DL (8.8-10.2); CREATININE FOR GFR 1.86 MG/DL (0.70-1.30); GLOMERULAR FILTRATION RATE 38.2 (>42); POTASSIUM SERUM 4.3 MEQ/L (3.5-5.1)
[2021-10-06] MEDS ORDERED: FUROSEMIDE 40MG/4ML VIAL (J1940) IV ONE (14:10)
[2021-10-06] MEDS ORDERED: METOPROLOL TART 50 MG TAB PO ONE (18:25)
[2021-10-06] MEDS ORDERED: HEPARIN SOD (PORCINE) 5000UNITS/ML 1ML VIAL/SYRINGE IV ONE (18:55)
[2021-10-06] MEDS ORDERED: HEPARIN DRIP 25,000 UNITS in IV 1 EA IV SCH (18:55)
[2021-10-06 19:26] LABS: INR 1.31; PROTHROMBIN TIME 16.7 SECONDS (12.7-14.5)
[2021-10-06 19:27] LABS: PARTIAL THROMBOPLASTIN TIME 34.4 SECONDS (25.9-37.0)
[2021-10-06 19:28] VITALS: BP 134/88
[2021-10-06 19:45] VITALS: BP 158/83
== END 2021-10-06 19:57 | disposition short-term general hospital (02) ==
LOC: M ED 12:07 → EDBD 12:07 → M ED 19:57
DX: I21.4 Non-ST elevation (NSTEMI) myocardial infarction (principal); I48.91 Unspecified atrial fibrillation; I50.30 Unspecified diastolic (congestive) heart failure; N18.30 Chronic kidney disease, stage 3 unspecified; E11.9 Type 2 diabetes mellitus without complications; E78.5 Hyperlipidemia, unspecified; F33.9 Major depressive disorder, recurrent, unspecified; G47.33 Obstructive sleep apnea (adult) (pediatric); Z99.89 Dependence on other enabling machines and devices; Z95.1 Presence of aortocoronary bypass graft; Z79.899 Other long term (current) drug therapy; Z79.84 Long term (current) use of oral hypoglycemic drugs; Z79.4 Long term (current) use of insulin; Z79.01 Long term (current) use of anticoagulants; Z87.891 Personal history of nicotine dependence
CPT/HCPCS: 71045; 71250; 80048; 83880; 84484; 85025; 85610; 85730; 87486; 87581; 87633; 87798; 93005; 93041; 94760; 96365; 96375; 99285; J1644; J1940

== ENCOUNTER 2021-10-25 13:56 | Emergency (ER) | payer MEDICARE ==
[~2021-10-25] VITALS: Ht 170.2 cm; Wt 95.5 kg
[~2021-10-25 13:56] MED LIST changes: +SERTRALINE
[2021-10-25 15:06] LABS: BASO # 0.1 10^3/uL (0.0-0.2); BASO % 0.3 % (0.0-1.0); EOS # 0.1 10^3/uL (0.0-0.5); EOS % 0.5 % (0.0-3.0); HEMATOCRIT 22.4 % (42.0-52.0); HEMOGLOBIN 7.1 g/dl (13.5-17.5); LYMPH # 1.6 10^3/uL (1.5-5.0); LYMPH % 9.2 % (24.0-44.0); MEAN CORPUSCULAR HGB CONC 31.7 g/dl (32.0-36.5); MEAN CORPUSCULAR VOLUME 94.5 fl (80.0-96.0); MONO % 5.5 % (2.0-8.0); NEUTROPHILS # 14.3 10^3/uL (1.5-8.5); NEUTROPHILS % 83.3 % (36.0-66.0); PLATELET COUNT, AUTOMATED 253 10^3/uL (150-450); RED BLOOD COUNT 2.37 10^6/uL (4.30-6.10); WHITE BLOOD COUNT 17.1 10^3/uL (4.0-10.0)
[2021-10-25 15:34] LABS: CK-MB VALUE MASS 2.5 NG/ML (<3.6); MB/CK RELATIVE INDEX 5.95 (< OR =4)
[2021-10-25 15:40] LABS: BILIRUBIN,DIRECT 0.1 MG/DL (0.0-0.2); BILIRUBIN,TOTAL 0.4 MG/DL (0.2-1.0); CALCIUM LEVEL 7.9 MG/DL (8.8-10.2); CREATININE FOR GFR 1.67 MG/DL (0.70-1.30); GLOMERULAR FILTRATION RATE 43.3 (>42); POTASSIUM SERUM 4.3 MEQ/L (3.5-5.1); THYROID STIMULATING HORMONE 2.02 uIU/ML (0.358-3.740); TOTAL PROTEIN 5.9 GM/DL (6.4-8.2)
[2021-10-25 15:48] LABS: INR 1.4; PARTIAL THROMBOPLASTIN TIME 29.9 SECONDS (25.9-37.0); PROTHROMBIN TIME 17.5 SECONDS (12.7-14.5)
[2021-10-25] MEDS ORDERED: PANTOPRAZOLE 40MG VIAL IV ONE (16:40)
[2021-10-25 17:01] VITALS: BP 132/68
[2021-10-25 17:16] VITALS: BP 150/75
[2021-10-25 18:16] VITALS: BP 118/56
[2021-10-25 18:34] LABS: RSV AMPLIFICATION NEGATIVE (NEGATIVE)
[2021-10-25 20:14] VITALS: BP 134/68
[2021-10-25 20:30] VITALS: BP 136/64
== END 2021-10-25 20:40 | disposition short-term general hospital (02) ==
LOC: EDBD 13:56 → M ED 13:56
DX: K92.2 Gastrointestinal hemorrhage, unspecified (principal); D62 Acute posthemorrhagic anemia; E11.9 Type 2 diabetes mellitus without complications; I10 Essential (primary) hypertension; I50.9 Heart failure, unspecified; I48.91 Unspecified atrial fibrillation; I25.10 Atherosclerotic heart disease of native coronary artery without angina pectoris; E78.5 Hyperlipidemia, unspecified; G47.33 Obstructive sleep apnea (adult) (pediatric); Z99.89 Dependence on other enabling machines and devices; Z95.1 Presence of aortocoronary bypass graft; Z79.899 Other long term (current) drug therapy; Z79.84 Long term (current) use of oral hypoglycemic drugs; Z79.4 Long term (current) use of insulin; Z79.01 Long term (current) use of anticoagulants; Z79.82 Long term (current) use of aspirin; Z87.891 Personal history of nicotine dependence
CPT/HCPCS: 36430; 70450; 71045; 72125; 80048; 80076; 82550; 82553; 84443; 84484; 85025; 85610; 85730; 86850; 86900; 86901; 86920; 87631; 93005; 96374; 99285; C9113; P9016